=== PATIENT | female | born 1985 | race Caucasian/White ===

== ENCOUNTER 2018-07-30 01:37 | Inpatient (IN) | payer BC ==
[2018-07-30] MEDS ORDERED: CARBOPROST TROMETHAMINE 250 MCG/ML 1 ML AMP IM PRN (02:36)
[2018-07-30] MEDS ORDERED: OXYTOCIN 10 UNIT/ML 1 ML VIAL IM PRN (02:36)
[2018-07-30] MEDS ORDERED: TERBUTALINE 1 MG/ML VIAL SQ PRN (02:36)
[2018-07-30] MEDS ORDERED: METHYLERGONOVINE 0.2 MG/ML 1 ML AMP IM PRN (02:36)
[2018-07-30] MEDS ORDERED: LIDOCAINE 0.5% (PF) 5 MG/ML (50 ML SDV) SQ PRN (02:36)
[2018-07-30] MEDS: LACTATED RINGERS 1,000 ML IV SCH ×2 (02:39→07:15)
[2018-07-30] MEDS ORDERED: LACTATED RINGERS 1,000 ML IV SCH (02:45)
[2018-07-30 02:49] LABS: Basophils % (A) 0 %; Eosinophils # (A) 0.2 k/uL (0-0.7); Eosinophils % (A) 1 %; HCT 40.1 % (34.0-46.0); HGB 13.2 gm/dL (11.4-16.0); Lymphocytes # (A) 1.8 k/uL (1.0-4.8); Lymphocytes % (A) 8 %; MCHC 32.9 g/dL (31.0-37.0); Mean Platelet Volume 8.3; Monocytes # (A) 0.7 k/uL (0-1.0); Monocytes % (A) 3 %; Neutrophils # (A) 18.8 k/uL (1.3-7.7); Neutrophils % (A) 87 %; Platelet Count 289 k/uL (150-450); RDW 14.4 % (11.5-15.5); WBC 21.6 k/uL (3.8-10.6)
[2018-07-30 03:42] VITALS: BMI 27.4
[2018-07-30] MEDS ORDERED: ROPIVACAINE 100 MG, fentaNYL (PF) 200 MCG in SODIUM CHLORIDE 0.9% 76 ML EPIDURAL ONE (06:33)
[2018-07-30] MEDS ORDERED: CITRIC ACID-SODIUM CITRATE 15 ML CUP PO ONE (09:39)
[2018-07-30] MEDS ORDERED: LACTATED RINGERS 1,000 ML IV ONE (09:39)
[2018-07-30] MEDS ORDERED: ceFAZolin IN SWFI 2 GM/20 ML SYRINGE IVP ONE (09:39)
--- NOTE | 2018-07-30 09:45 | P.HPOB ---
History of Present Illness H&P Date: 07/30/18 Chief Complaint: 39-5/7 weeks, labor The patient is a 32-year-old 1 para 0 admitted at 39-5/7 weeks as established by good dating parameters, 6 week ultrasound. She is admitted in the early labor with all signs reassuring. Her has been accomplished negative the she is Rh- and received RhoGAM at 28 weeks. Group B strep status is negative. Obstetrical history: 1 para 0 current statistics listed in history of present illness. EDC of 08/01/2018 was established by a 6 week ultrasound. Laboratory workup demonstrates a blood type of A- with a negative antibody screen. Rubella status is immune. All other laboratory workups within normal limits. One hour Glucola was normal and group B strep status is negative. Gynecologic history: Unremarkable with no history of any infections to include STDs. Review of Systems Review of systems is confined to history of present illness. Past Medical History Past Medical History: Syncope History of Any Multi-Drug Resistant Organisms: None Reported Past Surgical History: No Surgical Hx Reported Past Anesthesia/Blood Transfusion Reactions: No Reported Reaction Past Psychological History: No Psychological Hx Reported Smoking Status: Never smoker Past Alcohol Use History: None Reported Past Drug Use History: None Reported - Past Family History Sister(s) Family Medical History: Blood Disorder, Cancer Medications and Allergies Home Medications Medication Instructions Recorded Confirmed Type Pnv,Calcium 72/Iron/Folic Acid 1 each PO DAILY 07/30/18 07/30/18 History [ Plus Tablet] Allergies Allergy/AdvReac Type Severity Reaction Status Date / Time No Known Allergies Allergy Verified 07/30/18 02:35 Exam Vital Signs Temp Pulse Resp BP Pulse Ox 07/30/18 02:36 98.0 F 79 20 114/66 99 07/30/18 02:30 98.0 F 79 20 114/66 99 Intake and Output 07/29/18 07/30/18 07/30/18 22:59 06:59 14:59 Output Total 300 Balance -300 Output: Urine 300 Other: Weight 68.039 kg In general, this is a well-developed, well-nourished white female in no acute distress heart has a regular rhythm and rate without murmur. Her lungs are clear to auscultation bilaterally in all segura. Her abdomen is gravid, nondistended, has normal active bowel sounds, is soft, nontender, without any palpable masses aside from uterine fundus. Her extremities are without any cyanosis, clubbing, or edema and are nontender to palpation bilaterally. Digital cervical examination demonstrates her cervix to be 870 additionally, 90% effaced, the vertex in presentation at -1 station. Artificial rupture of membranes is carried out demonstrating clear fluid. Results Result Diagrams: 07/30/18 02:31 Abnormal Lab Results - Last 24 Hours (Table) 07/30/18 Range/Units 02:31 WBC 21.6 H (3.8-10.6) k/uL Neutrophils # 18.8 H (1.3-7.7) k/uL Assessment and Plan (1) Active labor at term Current Visit: Yes Status: Acute Code(s): BTL5621 - SNOMED Code(s): 73911311 Plan: The patient is admitted for close maternal and surveillance and she will have expectant management. An epidural catheter has been placed for analgesia. We will anticipate normal spontaneous vaginal delivery in the near future.
[2018-07-30] MEDS ORDERED: ACETAMINOPHEN IV (For NPO) 1,000 MG in EMPTY BAG 1 BAG IVPB STA (10:35)
[2018-07-30] MEDS ORDERED: ONDANSETRON 4 MG/2 ML VIAL IVP PRN (10:37)
[2018-07-30] MEDS ORDERED: NALOXONE 0.4 MG/ML 1 ML VIAL IV PRN (10:37)
[2018-07-30] MEDS ORDERED: diphenhydrAMINE 50 MG CAP PO PRN (10:37)
[2018-07-30] MEDS ORDERED: ZOLPIDEM 5 MG TAB PO PRN (10:37)
[2018-07-30] MEDS ORDERED: METOCLOPRAMIDE 5 MG/ML 2 ML VIAL IVP PRN (10:37)
[2018-07-30] MEDS ORDERED: diphenhydrAMINE 25 MG CAP PO PRN (10:37)
[2018-07-30] MEDS ORDERED: HYDROcodone/APAP 5-325MG 1 EACH TAB PO PRN (10:37)
[2018-07-30] MEDS ORDERED: diphenhydrAMINE 50 MG/ML 1 ML VIAL IVP PRN ×2 (10:37)
--- NOTE | 2018-07-30 10:47 | P.OP ---
Date of Procedure: 07/30/18 Preoperative Diagnosis: #1. 39-5/7 weeks, labor #2. Arrest of descent #3. Suspected malposition Postoperative Diagnosis: Same plus #4. Left occiput posterior position Procedure(s) Performed: #1. Primary low transverse section Anesthesia: MEGHNA Surgeon: Colton Quiroz Link Knitting Machine Operator #1: Hiwot Crane Estimated Blood Loss (ml): 600 IV fluids (ml): 1,000 Urine output (ml): 100 Pathology: other Condition: stable Disposition: PACU Operative Findings: The patient progressed to complete fairly quickly and began to push effectively. She continued to have a very thin anterior lip and head descent was no lower than 0 to -1 station at which time she was thought to have a relatively contracted pelvis with a narrow pubic arch and very prominent posterior initial spines. Additionally, the infant was thought to be in occiput posterior position. As result she was taken the operating room where she underwent primary low-transverse section was delivered of a viable 7 pound, 3 ounces baby boy with Apgars of 9 and 9 at 1 and 5 minutes respectively.. The placenta was delivered manually, intact, and grossly normal with a grossly normal three-vessel cord. The uterus, tubes, and ovaries were entirely normal to inspection. Description of Procedure: Patient was prepped and draped in usual fashion after general endotracheal anesthesia was administered by the anesthesiologist as epidural anesthesia did not produce adequate analgesia. A Pfannenstiel incision was made into the abdominal cavity without difficulty. The bladder peritoneum was elevated, inc ised and reflected distally. A 2 cm incision was made in the lower uterine segment and the transverse plane to enter the uterus at which time clear fluid was noted. The incision was extended bluntly in both directions. The head was found deep in the pelvis in the left occiput posterior position and was delivered up and through the incision where the nose and mouth were thoroughly suctioned. The remainder of the was delivered onto the field where the cord was doubly clamped, cut, and the passed resuscitative measures with weight and Apgars as noted above. A segment of cord was doubly clamped, cut, and set aside should cord gases become necessary. The placenta was delivered manually and intact as noted above. Uterus was exteriorized and the interior cavity of uterus swept of any remaining placental or membranous fragments. The margins of the incision were grasped with [place] clamps and the incision closed in 2 layers. The first layer was a running locking stitch of 0 chromic catgut followed by a running imbricating layer of 0 chromic catgut, each from margin to margin. There was some ongoing bleeding at the right aspect of the incision which was made hemostatic with several [id number] stitches of 0 chromic catgut. After assuring adequate hemostasis, the uterus was replaced within the abdominal cavity after suctioning the posterior cul-de-sac with a guard. The uterine and ovarian findings were normal as noted above. The gutters were swept of any remaining blood, fluid, or clot. Any small points of bleeding were made hemostatic with the Bovie. Once hemostasis was assured, the parietal peritoneum was loosely reapproximated and layer of muscles examined and found to be hemostatic. The fascia was closed with 2 running stitches of 0 Vicryl proceeding from the lateral margins to the midpoint. The subcutaneous tissues were irrigated, made hemostatic with the Bovie, and not close primarily as they were very thin. The skin was reapproximate with a running subcuticular stitch of 4-0 Vicryl followed by half-inch Steri-Strips placed with Mastisol. All sponge, instrument, needle counts were correct. Estimated blood loss for the case is approximately 600 mL. There were no complications. The patient tolerated procedure well and proceeded to the recovery room in stable condition. Both mother and are resting comfortably in recovery.
[2018-07-31] MEDS: SENNOSIDES-DOCUSATE SODIUM 1 EACH TAB PO SCH ×3 (07:48→19:28)
[2018-07-31 07:59] LABS: Basophils % (A) 0 %; Eosinophils # (A) 0.1 k/uL (0-0.7); Eosinophils % (A) 1 %; HCT 31.8 % (34.0-46.0); HGB 10.4 gm/dL (11.4-16.0); Lymphocytes % (A) 14 %; MCH 30.6 pg (25.0-35.0); MCHC 32.6 g/dL (31.0-37.0); MCV 93.6 fL (80.0-100.0); Mean Platelet Volume 7.8; Monocytes # (A) 0.6 k/uL (0-1.0); Monocytes % (A) 4 %; Neutrophils # (A) 12.1 k/uL (1.3-7.7); Neutrophils % (A) 81 %; Platelet Count 238 k/uL (150-450); RDW 13.5 % (11.5-15.5)
--- NOTE | 2018-07-31 08:38 | P.PNOBGPC ---
Subjective - Subjective Patient reports: Reports appetite normal, Reports voiding normally, Reports pain well controlled, Reports ambulating normally : doing well, nursing well Objective - Vital Signs Latest vital signs: Vital Signs Temp Pulse Resp BP Pulse Ox 07/31/18 04:00 98.3 F 70 14 98/63 07/31/18 00:00 98.0 F 78 16 118/65 07/30/18 20:00 97.9 F 72 16 103/63 07/30/18 15:31 96.6 F L 63 18 111/65 98 07/30/18 12:57 96.6 F L 15 111/62 97 07/30/18 12:30 69 18 109/68 100 07/30/18 12:05 60 18 114/70 100 07/30/18 11:45 60 18 116/70 100 07/30/18 11:15 73 18 100 07/30/18 10:55 96.9 F L 90 20 134/78 100 Intake and Output 07/30/18 07/31/18 07/31/18 22:59 06:59 14:59 Intake Total 300 300 Output Total 600 Balance -300 300 Intake: Oral 300 300 Output: Urine 600 - Exam Extremities: Present: normal Abdomen: Present: normal appearance, soft. Absent: distention, tenderness Incision: Present: normal, dry, intact Uterus: Present: normal, firm (The uterine fundus is tonic and nontender at the umbilicus.) - Labs Labs: Abnormal Lab Results - Last 24 Hours (Table) 07/31/18 Range/Units 06:39 WBC 15.0 H (3.8-10.6) k/uL RBC 3.40 L (3.80-5.40) m/uL Hgb 10.4 L (11.4-16.0) gm/dL Hct 31.8 L (34.0-46.0) % Neutrophils # 12.1 H (1.3-7.7) k/uL Assessment and Plan (1) Active labor at term Current Visit: Yes Status: Acute Code(s): ZBC2361 - SNOMED Code(s): 65663676 (2) S/P section Current Visit: Yes Status: Acute Code(s): Z98.891 - HISTORY OF UTERINE SCAR FROM PREVIOUS SURGERY SNOMED Code(s): 477045345 Plan: Continue routine postoperative care. Advance diet to regular. I have strongly encouraged her to ambulate in the hallways at least 4 times daily. The IV fluids will be stopped and the IV left in place for several hours should it become necessary. Oral pain medications are available.
[2018-07-31] MEDS: KETOROLAC 30 MG/ML 1 ML VIAL IVP PRN ×2 (09:29→17:03)
[2018-07-31] MEDS: LACTATED RINGERS 1,000 ML IV SCH ×3 (11:04→20:07)
[2018-07-31] MEDS: HYDROcodone/APAP 7.5-325MG 1 EACH TAB PO PRN ×2 (14:05→22:39)
[2018-08-01] MEDS: IBUPROFEN 600 MG TAB PO PRN ×2 (02:00→08:31)
[2018-08-01] MEDS: HYDROcodone/APAP 7.5-325MG 1 EACH TAB PO PRN (04:33)
[2018-08-01 08:02] VITALS: BP 106/85; PULSE 64; RESP 18; TEMP 97.6
[2018-08-01] MEDS: SENNOSIDES-DOCUSATE SODIUM 1 EACH TAB PO SCH (08:32)
--- NOTE | 2018-08-01 08:46 | P.DS ---
Providers Date of admission: 07/30/18 02:06 Expected date of discharge: 08/01/18 Attending physician: Colton Quiroz Primary care physician: Colton Quiroz - Discharge Diagnosis(es) (1) Active labor at term Current Visit: Yes Status: Acute (2) S/P section Current Visit: Yes Status: Acute Hospital Course: The patient is a 32-year-old 1 para 0 admitted at 39-5/7 weeks by good dating parameters. She is admitted in labor with all signs reassuring. She is known to be Rh- and received RhoGAM at 28 weeks. Group B strep status is negative. On labor and delivery, she had an epidural catheter placed for analgesia which failed to provide any significant level of the pain control. She nevertheless progressed very quickly to complete after artificial rupture of membranes for clear fluid. After pushing for some time, she was noted to have no significant descent of the head despite excellent effort and the position was thought to be occiput posterior. She was taken to the operating room for primary low transverse section where she was delivered of a viable 7 lbs. 3 oz. baby boy with Apgars of 9 at 1 minute and 9 at 5 minutes in the left occiput posterior position. Her postoperative course was unremarkable vital signs remain stable and her temperature was afebrile throughout. She was deemed stable for discharge on and postoperative day #2. She was discharged home to follow-up in the office in 2 weeks for an incision check and 6 weeks routinely. Discharge instructions included calling for any significantly increased bleeding or foul-smelling lochia, significantly increased fever or abdominal pain, perineal complaints, breast complaints, incisional complaints, or anything else that concerned her. She was additionally instructed to have nothing in the vagina for at least 6 weeks time to include intercourse and to abstain from any heavy lifting over the same period of time. She was last instructed to do no driving until off of all pain medications or 2 weeks' time, whichever came first. She understood her instructions and agrees to follow up as noted above. Discharge medications included a prescription for [place] 5/325 mg, 1-2 by mouth every 6 hours when necessary pain, #20 dispensed with no refills. She is additionally to use [id number]-fqmhjea analgesic pain medications as necessary. She was additionally to continue with the vitamins as she has opted to breast-feed. Maternal blood type is A- and cord blood was sent for evaluation for the necessity of RhoGAM prior to discharge. Rubella status is immune. Discharge hemoglobin and hematocrit were 10.4 and 31.8 respectively. Procedures: #1. Epidural analgesia #2. Artificial rupture of membranes #3. Primary low transverse section Patient Condition at Discharge: Stable Plan - Discharge Summary New Discharge Prescriptions: No Action Pnv,Calcium 72/Iron/Folic Acid [ Plus Tablet] 1 each PO DAILY Discharge Medication List Pnv,Calcium 72/Iron/Folic Acid [ Plus Tablet] 1 each PO DAILY 07/30/18 [History] Follow up Appointment(s)/Referral(s): Colton Quiroz MD [Primary Care Provider] - 2 Weeks Discharge Disposition: HOME SELF-CARE
== END 2018-08-01 11:01 | disposition home or self-care (01) | DRG 788 ==
LOC: FBPOP 01:37 → 4FBP 02:06
PROVIDERS: ADMIT Obstetrics & Gynecology Obstetrics; ATTEND Obstetrics & Gynecology
PROC: 10D00Z1 Extraction of Products of Conception, Low, Open Approach (ICD-10-PCS; principal; 2018-07-30 09:57)
DX: O26.893 Other specified pregnancy related conditions, third trimester (principal); O62.1 Secondary uterine inertia; Z67.91 Unspecified blood type, Rh negative; Z37.0 Single live birth; Z3A.39 39 weeks gestation of pregnancy; Z80.9 Family history of malignant neoplasm, unspecified; Z83.2 Family history of diseases of the blood and blood-forming organs and certain disorders involving the immune mechanism
CPT/HCPCS: 85025; 86850; 86900; 86901

== ENCOUNTER → 2018-11-19 | Outpatient (CLI) | payer BC ==
--- NOTE | 2018-11-19 10:39 | MM ---
Reason for exam: screening (asymptomatic). Baseline mammogram. History: Patient had first child at age 32. Family history of breast cancer in sister at age 43 and breast cancer in maternal aunt at age 40. Took hormonal contraceptives beginning at age 16. Physical Findings: Nurse did not find any significant physical abnormalities on exam. MG 3D Screening Mammo W/Cad Bilateral CC, MLO, and XCCL view(s) were taken. The breast tissue is extremely dense which could obscure a lesion on mammography. There is no discrete abnormality. These results were verbally communicated with the patient and result sheet given to the patient on 11/19/18. ASSESSMENT: Negative, BI-RAD 1 RECOMMENDATION: Routine screening mammogram of both breasts at age 38.
== END ==
LOC: RADMAMWWP 09:27
PROVIDERS: ATTEND Obstetrics & Gynecology
DX: Z12.31 Encounter for screening mammogram for malignant neoplasm of breast (principal); Z80.3 Family history of malignant neoplasm of breast
CPT/HCPCS: 77063; 77067

== ENCOUNTER 2019-10-07 20:00 | Inpatient (IN) | payer BC ==
[2019-10-07 20:31] LABS: Appearance,Urine Clear (Clear); Bilirubin,Urine Negative (Negative); Blood,Urine Moderate (Negative); Color,Urine Light Yellow; Glucose,Urine (UA) Negative (Negative); Ketones,Urine Negative (Negative); Leukocyte Esterase,Urine Negative (Negative); Nitrite,Urine Negative (Negative); PH, Urine 6.5 (5.0-8.0); Protein,Urine Negative (Negative); RBC,Urine 2 /hpf (0-5); Specific Gravity,Urine 1.012 (1.001-1.035); Squamous Epithelial Cell,Urine <1 /hpf (0-4); Urobilinogen,Urine <2.0 mg/dL (<2.0); WBC,Urine 1 /hpf (0-5)
--- NOTE | 2019-10-07 21:08 | P.HPOB ---
History of Present Illness H&P Date: 10/07/19 Chief Complaint: IUP @ 23 6/7 weeks, vaginal bleeding This is a 34-year-old 2 para 1001 at 23-6/7 weeks with an estimated due date of 01/28/2020 based on last menstrual period and consistent with ultrasound. Patient presents with complaints of vaginal bleeding that she felt increased over the day. Patient did note some brown discharge over the weekend and denied contractions. Patient has been receiving routine care since the first trimester. Patient has a history of a and did plan repeat at 39 weeks. In addition on ultrasound patient had known single umbilical artery, anatomy ultrasound done on revealing a weight of 10 ounces measuring 19 weeks. Patient's blood type of A-, rubella immune, RPR nonreactive, hepatitis B surface antigen negative, HIV negative. Review of Systems Constitutional: Denies chills, Denies fatigue, Denies fever Ears, nose, mouth and throat: Denies headache Cardiovascular: Denies leg edema Respiratory: Denies dyspnea Gastrointestinal: Denies nausea, Denies vomiting Genitourinary: Reports Past Medical History Past Medical History: Syncope History of Any Multi-Drug Resistant Organisms: None Reported Past Surgical History: No Surgical Hx Reported Past Anesthesia/Blood Transfusion Reactions: No Reported Reaction Smoking Status: Never smoker - Past Family History Sister(s) Family Medical History: Blood Disorder, Cancer Medications and Allergies Home Medications Medication Instructions Recorded Confirmed Type Pnv,Calcium 72/Iron/Folic Acid 1 each PO DAILY 07/30/18 10/07/19 History [ Plus Tablet] Allergies Allergy/AdvReac Type Severity Reaction Status Date / Time No Known Allergies Allergy Verified 10/07/19 20:09 Exam Osteopathic Statement: *. No significant issues noted on an osteopathic structural exam other than those noted in the History and Physical/Consult. 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-nourished well-developed visibly tearful, upset patient breathing is noted to nonlabored, heart has regular rate and rhythm, abdomen is gravid and appropriate for gestational age, no heart tones are noted on ultrasound Results Abnormal Lab Results - Last 24 Hours (Table) 10/07/19 Range/Units 20:00 Urine Blood Moderate H (Negative) Assessment and Plan (1) 23 weeks gestation of Current Visit: Yes Status: Acute Code(s): Z3A.23 - 23 WEEKS GESTATION OF SNOMED Code(s): 08371564 (2) demise Current Visit: Yes Status: Acute Code(s): SZO7692 - SNOMED Code(s): 984259492 Plan: This 34 year old 2 para 1001 at 23-6/7 weeks presented to labor and delivery with complaints of bright red bleeding, he should underwent ultrasound well on the unit, no heart tones were noted, IUP measuring 18 weeks 3 days, weight of 10 ounces. records are reviewed prior ultrasound done on 09/11/19 revealing 19 week intrauterine , weight of 10 ounces. I did discuss options with the patient and her including starting induction of labor secondary to demise this evening or tomorrow morning. Patient does have a history of a in the past but given her early gestational age would recommend Cervidil/Cytotec induction. Patient is counseled on pain control in addition throughout this process.
[2019-10-07] MEDS ORDERED: LIDOCAINE 0.5% (PF) 5 MG/ML (50 ML SDV) SQ PRN (21:13)
[2019-10-07] MEDS ORDERED: METHYLERGONOVINE 0.2 MG/ML 1 ML AMP IM PRN (21:13)
[2019-10-07] MEDS ORDERED: TERBUTALINE 1 MG/ML VIAL SQ PRN (21:13)
[2019-10-07] MEDS ORDERED: CARBOPROST TROMETHAMINE 250 MCG/ML 1 ML AMP IM PRN (21:13)
--- NOTE | 2019-10-07 21:13 | US ---
EXAMINATION TYPE: US OB >= 14 wk fetus DATE OF EXAM: 10/07/2019 COMPARISON: None CLINICAL HISTORY: Bleeding. Complete Growth study. G 2 P1. Hx . TECHNIQUE: Transabdominal (TA) GESTATIONAL AGE / DATING Physician Established: (23 weeks/6 days) EDC: 01/28/2020 Dates by LMP: Unknown Dates by First Scan: This is first scan Dates by Current Scan: (18 weeks/3 days) EDC: 03/06/2020 SURVEY IUP: Single PLACENTA: Posterior-Fundal. Appears to be heterogeneous. PREVIA: Not seen DANA: 12.59 cm Normal CERVICAL LENGTH (transabdominal: norm > 3.0cm): Not well seen. Transvaginal exam not performed, unnecessary per nurse. BIOMETRY PRESENTATION: Vertex BPD: 3.86 cm 17 weeks / 5 days HC: 14.70 cm 17 weeks / 6 days AC: 15.30 cm 20 weeks / 4 days FL: 2.74 cm 18 weeks / 3 days ESTIMATED WEIGHT IN GRAMS: 284.32 grams ESTIMATED WEIGHT IN LBS/OZ: 0 lbs. 10 oz. WEIGHT PERCENTAGE BASED ON ESTABLISHED DATES: <3% HC/AC: 0.96 Abnormal FL/AC: 17.93 HEART RATE: Unable to visualize or detect heart tones at this time RHYTHM: Abnormal, unable to detect Hypoechoic areas seen surrounding abdomen. IMPRESSION: There is intrauterine demise at approximately 18 weeks gestation.
[2019-10-07] MEDS ORDERED: miSOPROStoL 200 MCG TAB PO STA (21:17)
[2019-10-07] MEDS ORDERED: BUTORPHANOL 1 MG/ML 1 ML VIAL IV PRN (21:18)
[2019-10-07] MEDS: LACTATED RINGERS 1,000 ML IV SCH (21:45)
[2019-10-07 21:49] VITALS: RESP 16
[2019-10-07 22:33] LABS: Basophils % (A) 0 %; Eosinophils # (A) 0.1 k/uL (0-0.7); Eosinophils % (A) 2 %; HCT 38.7 % (34.0-46.0); HGB 12.6 gm/dL (11.4-16.0); Lymphocytes # (A) 1.7 k/uL (1.0-4.8); Lymphocytes % (A) 22 %; MCH 30.1 pg (25.0-35.0); MCHC 32.6 g/dL (31.0-37.0); MCV 92.3 fL (80.0-100.0); Mean Platelet Volume 7.6; Monocytes # (A) 0.3 k/uL (0-1.0); Monocytes % (A) 4 %; Neutrophils # (A) 5.5 k/uL (1.3-7.7); Neutrophils % (A) 71 %; Platelet Count 186 k/uL (150-450); RBC 4.19 m/uL (3.80-5.40); RDW 13.2 % (11.5-15.5); WBC 7.8 k/uL (3.8-10.6)
[2019-10-08] MEDS ORDERED: miSOPROStoL 200 MCG TAB PO STA (04:02)
[2019-10-08] MEDS: LACTATED RINGERS 1,000 ML IV SCH (04:22)
[2019-10-08] MEDS ORDERED: BENZOCAINE/MENTHOL SPRAY 1 GM/SPRAY AEROSOL TOPICAL PRN (07:30)
[2019-10-08] MEDS ORDERED: SIMETHICONE 80 MG CHEWABLE PO PRN (07:30)
[2019-10-08] MEDS ORDERED: diphenhydrAMINE 25 MG CAP PO PRN (07:30)
[2019-10-08] MEDS ORDERED: HYDROCORTISONE 2.5% RECTAL CREAM 30 GM TUBE RECTAL PRN (07:30)
[2019-10-08] MEDS ORDERED: ACETAMINOPHEN TAB 325 MG TAB PO PRN (07:30)
[2019-10-08] MEDS ORDERED: diphenhydrAMINE 50 MG/ML 1 ML VIAL IVP PRN ×2 (07:30)
[2019-10-08] MEDS ORDERED: LANOLIN CREAM 5 GM TUBE TOPICAL PRN (07:30)
[2019-10-08] MEDS ORDERED: IBUPROFEN 600 MG TAB PO PRN (07:30)
[2019-10-08] MEDS ORDERED: ZOLPIDEM 5 MG TAB PO PRN (07:30)
[2019-10-08] MEDS ORDERED: diphenhydrAMINE 50 MG CAP PO PRN (07:30)
--- NOTE | 2019-10-08 08:06 | P.PROBDLV ---
Vaginal Delivery Note - . Vaginal Delivery Note: This 34-year-old 2 para 1001 at 23-6/7 weeks presented to labor and delivery yesterday with complaints of vaginal bleeding. Complete ultrasound was a preformed and no heart tones were noted. Patient was subsequently admitted to labor and delivery and Cytotec induction of labor was preformed secondary to demise. Patient progressed quickly through labor started feeling vaginal pressure and had a normal spontaneous vaginal delivery of an interuterine demise. The umbilical cord was doubly clamped and cut and the infant was handed off to the maternal abdomen. After a short while the placenta was delivered spontaneously intact. Minimal bleeding was noted throughout the delivery. No vaginal lacerations were noted. Patient tolerated delivery well. All counts are noted to be correct 2 at the end of surgery.
[2019-10-08 08:12] VITALS: TEMP 98.8
[2019-10-08] MEDS ORDERED: Rhogam IMMUNE GLOBULIN 1,500 UNIT/1 ML IM ONE ×2 (09:15→10:38)
[2019-10-08 09:38] VITALS: PULSE 71
[2019-10-08 10:50] VITALS: BP 102/52
== END 2019-10-08 13:20 | disposition home or self-care (01) | DRG 807 ==
LOC: FBPOP 20:00 → 4FBP 21:20
PROVIDERS: ADMIT Obstetrics & Gynecology Obstetrics; ATTEND Obstetrics & Gynecology
PROC: 3E0P7VZ Introduction of Hormone into Female Reproductive, Via Natural or Artificial Opening (ICD-10-PCS; principal; 2019-10-08)
PROC: 10E0XZZ Delivery of Products of Conception, External Approach (ICD-10-PCS; principal; 2019-10-08)
DX: O36.4XX0 Maternal care for intrauterine death, not applicable or unspecified (principal); Z37.1 Single stillbirth; O34.219 Maternal care for unspecified type scar from previous cesarean delivery; Z3A.23 23 weeks gestation of pregnancy; O46.8X2 Other antepartum hemorrhage, second trimester
CPT/HCPCS: 76805; 81001; 85025; 86850; 86900; 86901; 99213

== ENCOUNTER 2020-11-03 10:05 | Outpatient (CLI) | payer BC ==
[2020-11-03 12:37] VITALS: BP 114/75; PULSE 65; RESP 16; TEMP 97.4
--- NOTE | 2020-11-06 12:29 | P.MSEPDOC ---
Presenting Problems - Arrival Data Date of Arrival on Unit: 11/03/20 Time of Arrival on Unit: 10:05 Mode of Transport: Ambulatory - Complaint OB-Reason for Admission/Chief Complaint: Headache, Other Comment: nausea and irregular contx Medical History - Information : 3 Para: 1 Term: 1 : 0 Abortions: Spontaneous or Elective: 1 Number of Living Children: 1 - Gestational Age Gestational Age by FER (wks/days): 37 Weeks and 5 Days Review of Systems - Review of Systems Constitutional: No problems Breast: No problems ENT: No problems Cardiovascular: No problems Respiratory: No problems Gastrointestinal: No problems Genitourinary: No problems Musculoskeletal: No problems Neurological: No problems Skin: No problems Vital Signs - Temperature Temperature: 97.4 F Temperature Source: Temporal Artery Scan - Pulse Apical Pulse Rate: 65 Pulse Assessment Method: Automatic Cuff - Respirations Respiratory Rate: 16 Oxygen Delivery Method: Room Air O2 Sat by Pulse Oximetry: 99 - Blood Pressure Right Arm Blood Pressure: 114/75 Blood Pressure Mean: 88 Blood Pressure Source: Automatic Cuff Medical Screen Scoring - Cervical Exam Dilation (cm): 1 Effacement (%): 50 Membranes: Intact - Uterine Contractions Intensity: Mild - Assessment - Baby A Baseline FHR: 135 Heart Rate - NICHD Category: Category I (Normal) NST: Reactive Physician Notification - Physician Notified Physician Notified Date: 11/03/20 Physician Notified Time: 11:20 Physician: Colton Quiroz Order Received: Yes - Notification Comment Comment: discharge home with instructions . keep appt for tomorrow Maternal Triage Index - Non-Urgent/Priority 4 Non-Urgent Priority 4: Yes Criteria Met for Priority 4: headache since yesterday. nausea today. no history of pih. hx of migrane headaches prenatally in early weeks Disposition - Disposition OB Disposition: Discharge to home, Written follow up instructions reviewed Discharge Date: 11/03/20 Discharge Time: 11:30 I agree with the RN Medical Screening Exam: Yes Physician's MSE Comment: I have neither seen nor examined the patient. Case reviewed; plan agreed upon as documented in EMR&OBIX.: Yes Diagnosis: RELATED CONDITIONS, UNSPECIFIED, THIRD TRIMESTER
== END 2020-11-03 11:30 | disposition home or self-care (01) ==
LOC: FBPOP 10:05
PROVIDERS: ATTEND Obstetrics & Gynecology
DX: O26.893 Other specified pregnancy related conditions, third trimester (principal); R51.9 Headache, unspecified; Z3A.37 37 weeks gestation of pregnancy
CPT/HCPCS: 59025; 99213

== ENCOUNTER 2020-11-12 08:05 | Inpatient (IN) | payer BC ==
[2020-11-09 15:30] VITALS: BMI 27.1
[2020-11-12] MEDS ORDERED: CITRIC ACID-SODIUM CITRATE 15 ML CUP PO ONE (08:38)
[2020-11-12 08:51] LABS: Basophils % (A) 0 %; Eosinophils # (A) 0.2 k/uL (0-0.7); Eosinophils % (A) 1 %; HCT 40.6 % (34.0-46.0); HGB 13.2 gm/dL (11.4-16.0); Lymphocytes # (A) 2.2 k/uL (1.0-4.8); Lymphocytes % (A) 16 %; MCH 31.2 pg (25.0-35.0); MCHC 32.6 g/dL (31.0-37.0); MCV 95.7 fL (80.0-100.0); Mean Platelet Volume 8.6; Monocytes # (A) 0.5 k/uL (0-1.0); Monocytes % (A) 4 %; Neutrophils # (A) 10.6 k/uL (1.3-7.7); Neutrophils % (A) 78 %; Platelet Count 206 k/uL (150-450); RBC 4.24 m/uL (3.80-5.40); RDW 13.3 % (11.5-15.5); WBC 13.7 k/uL (3.8-10.6)
[2020-11-12] MEDS ORDERED: PHENYLEPHRINE-0.9% NACL SYG 1,000 MCG/10 ML SYRINGE ONE (10:03)
[2020-11-12] MEDS ORDERED: KETOROLAC 15 MG/ML 1 ML VIAL ONE (10:03)
[2020-11-12] MEDS ORDERED: MORPHINE SULFATE (PF) 0.3 MG/0.3 ML SYR ONE (10:03)
[2020-11-12] MEDS ORDERED: NALBUPHINE 10 MG/ML (1 ML AMP) ONE (10:03)
[2020-11-12] MEDS ORDERED: ONDANSETRON 4 MG/2 ML VIAL ONE (10:03)
--- NOTE | 2020-11-12 10:12 | P.HPOB ---
History of Present Illness H&P Date: 11/12/20 Chief Complaint: 39-0/7 weeks, previous section, requesting repeat The patient is a 35-year-old 3 para 02/20/2000 admitted at 39-0/7 weeks by good dating parameters for repeat low transverse section. She has a history of a previous section and requested repeat. She also has history of a 23 week intrauterine demise for which she underwent maternal medicine consultation and had testing which was reassuring twice weekly after 32 weeks. She is also Rh- and received RhoGAM at 28 weeks. On labor and delivery, all signs reassuring with a category 1 heart rate tracing. Group B strep status is negative. Obstetrical history: 3 para 02/20/2000 with 1 term section and one 23 week loss which was thought to be secondary to syndrome of recurrence. Current statistics are listed in history present illness. EDC of 11/19/2020 was established by last menstrual period and confirmed by 9 week ultrasound. Laboratory workup demonstrates a blood type of A- with a negative antibody screen. Rubella status is immune. The remainder of the laboratory workup was within normal limits. One hour Glucola was normal and group B strep status is negative. Gynecologic history: Unremarkable with no history of any infections to include STDs. Review of Systems Review of systems is confined to history of present illness. Past Medical History Past Medical History: GERD/Reflux, Syncope History of Any Multi-Drug Resistant Organisms: None Reported Past Surgical History: Section Additional Past Surgical History / Comment(s): Section X1. Past Anesthesia/Blood Transfusion Reactions: No Reported Reaction Past Psychological History: No Psychological Hx Reported Smoking Status: Never smoker Past Alcohol Use History: None Reported Past Drug Use History: None Reported - Past Family History Sister(s) Family Medical History: Blood Disorder, Cancer Additional Family Medical History / Comment(s): Breast Cancer. Can't remember full name of blood disorder (IPT?). Medications and Allergies Home Medications Medication Instructions Recorded Confirmed Type Pnv,Calcium 72/Iron/Folic Acid 1 each PO 1300 07/30/18 11/09/20 History [ Plus Tablet] Aspirin 81 mg PO HS 11/03/20 11/09/20 History Ferrous Sulfate [Feosol] 325 mg PO BID 11/09/20 11/09/20 History Omeprazole [PriLOSEC] 20 mg PO Q48H 11/09/20 11/09/20 History Allergies Allergy/AdvReac Type Severity Reaction Status Date / Time No Known Allergies Allergy Verified 11/09/20 15:21 Exam Vital Signs Temp Pulse Resp BP 11/12/20 08:37 97.7 F 78 16 124/81 Intake and Output 11/11/20 11/12/20 11/12/20 22:59 06:59 14:59 Other: Weight 67.132 kg In general, this is a well-developed, well-nourished white female in no acute distress. Her heart has a regular rhythm and rate without murmur. Her lungs are clear to sedation bilaterally in all segura. Her abdomen is gravid, nondistended, has normal active bowel sounds, is soft, nontender, and without any palpable masses aside from uterine fundus. Her extremities without any cyanosis, clubbing, or significant edema and are nontender to palpation bilaterally. Digital cervical examination is deferred. Results Result Diagrams: 11/12/20 08:30 Abnormal Lab Results - Last 24 Hours (Table) 11/12/20 Range/Units 08:30 WBC 13.7 H (3.8-10.6) k/uL Neutrophils # 10.6 H (1.3-7.7) k/uL Assessment and Plan (1) Term Current Visit: Yes Status: Acute Code(s): Z34.90 - ENCNTR FOR SUPRVSN OF NORMAL , UNSP, UNSP TRIMESTER SNOMED Code(s): 62704544 (2) Previous section Current Visit: Yes Status: Acute Code(s): Z98.891 - HISTORY OF UTERINE SCAR FROM PREVIOUS SURGERY SNOMED Code(s): 791091906 Plan: The patient is admitted for repeat low transverse section. The risks and complications have been discussed and she has understood and agreed to proceed.
[2020-11-12] MEDS ORDERED: METOCLOPRAMIDE 5 MG/ML 2 ML VIAL IVP PRN (11:02)
[2020-11-12] MEDS ORDERED: ZOLPIDEM 5 MG TAB PO PRN (11:02)
[2020-11-12] MEDS ORDERED: diphenhydrAMINE 25 MG CAP PO PRN (11:02)
[2020-11-12] MEDS ORDERED: SIMETHICONE 80 MG CHEWABLE PO PRN (11:02)
[2020-11-12] MEDS ORDERED: NALOXONE 0.4 MG/ML 1 ML VIAL IV PRN (11:02)
[2020-11-12] MEDS ORDERED: HYDROmorphone 2 MG TAB PO PRN ×2 (11:02)
[2020-11-12] MEDS ORDERED: diphenhydrAMINE 50 MG/ML 1 ML VIAL IVP PRN ×2 (11:02)
[2020-11-12] MEDS ORDERED: ONDANSETRON 4 MG/2 ML VIAL IVP PRN (11:02)
[2020-11-12] MEDS ORDERED: diphenhydrAMINE 50 MG CAP PO PRN (11:02)
[2020-11-12] MEDS ORDERED: LANOLIN CREAM 5 GM TUBE TOPICAL PRN (11:02)
[2020-11-12] MEDS ORDERED: KETOROLAC 15 MG/ML 1 ML VIAL IVP PRN (11:02)
--- NOTE | 2020-11-12 11:11 | P.OP ---
Date of Procedure: 11/12/20 Preoperative Diagnosis: #1. 39-0/7 weeks, previous section, requesting repeat Postoperative Diagnosis: Same Procedure(s) Performed: #1. Repeat low transverse section Anesthesia: spinal Surgeon: Colton Quiroz [employer] Architect #1: Hiwot Crane Estimated Blood Loss (ml): 425 IV fluids (ml): 1,000 Urine output (ml): 400 Pathology: none sent Condition: stable Disposition: floor Operative Findings: The patient was taken the operating room where she was delivered of a viable 7 lbs. 9 oz. baby girl with Apgars of 9 at 1 minute and 9 at 5 minutes delivered in the right occiput transverse position. The placenta was delivered manually, intact, and grossly normal with a grossly normal three-vessel cord. The uterus, tubes, and ovaries were entirely normal to inspection. There was a moderate amount of scarring at the level of the rectus muscles and fascia as well as the bladder being scarred relatively high on the lower uterine segment as well. Urine was clear throughout the case. Description of Procedure: The patient was prepped and draped in usual fashion after spinal anesthesia was initially by the anesthesiologist. A Pfannenstiel incision was made through pre-existing scar and extended into the abdominal cavity without difficulty. There was a moderate amount of scarring encountered at the level of the fascia and rectus muscles. Upon entering the abdomen, the bladder was noted to be scarred relatively high both to the anterior abdominal wall and on the uterus. This was carefully taken down and a bladder flap created to allow the bladder to be reflected distally. A 2 cm incision was made in the transverse plane of the lower uterine segment to enter the uterus at which time clear fluid was noted. Incision was extended in both directions using the bandage scissors. The head was delivered up and through the incision where the nose and mouth were suctioned. The remainder of the was delivered onto the field where the cord was doubly clamped, cut, and the infant passed for resuscitative measures with weight and Apgars as noted above. A segment of cord was doubly clamped, cut, and set aside should cord gases become necessary. The placenta was delivered manually and intact as noted above. The uterus was exteriorized and the interior cavity of the uterus swept of any remaining placental or membranous fragments. The margins of the uterine incision were grasped with [place] clamps and the uterus closed in 2 layers. The first layer was a running locking stitch of 0 chromic catgut followed by a running imbricating stitch of 0 chromic catgut. There was a very large venous bleeder at the left angle of the incision which was made hemostatic with 2 [id number] stitches of 0 chromic catgut during closure of the incision. Any small points of bleeding were made hemostatic with the Bovie. The posterior cul-de-sac was suctioned with a guard and the uterine and ovarian findings were normal as noted above. Uterus was replaced within the abdomen and the gutters swept of any remaining blood, fluid, or clot. Examination of the incision demonstrated some mild oozing in the midportion where a sinus had been encountered. This was made hemostatic with 2 ktkaue-qz-flmyo stitches of 0 chromic catgut. Hemostasis was otherwise excellent. Once hemostasis had been achieved, the parietal peritoneum was loose ly reapproximated in the layer of muscles examined and found to be hemostatic. The fascia was closed with 2 running stitches of 0 Vicryl proceeding from the lateral margins to the midpoint. As the subcutaneous tissues were less than 1 cm in thickness, they were not closed primarily. A were irrigated and made hemostatic with the Bovie.. The skin was reapproximated with a running subcuticular stitch of 4-0 Vicryl from margin to margin followed by half-inch Steri-Strips placed with Mastisol. Estimated blood loss for the case was approximately 425 mL. There were no complications. All sponge, instrument, and needle counts were correct. The patient tolerated the procedure well and proceeded to the recovery room in stable condition. Both mother and are resting comfortably in recovery.
[2020-11-12] MEDS ORDERED: OXYTOCIN 30 UNITS/500 ML NS 30 UNIT in SALINE 1 500ML.BAG IV SCH (11:15)
[2020-11-12] MEDS: ACETAMINOPHEN TAB 500 MG TAB PO SCH ×2 (13:02→20:08)
[2020-11-12] MEDS: IBUPROFEN 600 MG TAB PO SCH ×2 (16:38→23:23)
[2020-11-12] MEDS: SENNOSIDES-DOCUSATE SODIUM 1 EACH TAB PO SCH (20:08)
[2020-11-12] MEDS: LACTATED RINGERS 1,000 ML IV SCH ×2 (20:44→23:25)
[2020-11-12] MEDS ORDERED: Rhogam IMMUNE GLOBULIN 1,500 UNIT/1 ML IM ONE (21:12)
[2020-11-13] MEDS: ACETAMINOPHEN TAB 500 MG TAB PO SCH ×4 (02:11→20:51)
[2020-11-13] MEDS: IBUPROFEN 600 MG TAB PO SCH ×4 (04:59→23:57)
[2020-11-13] MEDS: LACTATED RINGERS 1,000 ML IV SCH ×2 (06:40→21:13)
[2020-11-13 08:31] LABS: Basophils % (A) 0 %; Eosinophils # (A) 0.2 k/uL (0-0.7); Eosinophils % (A) 2 %; HCT 30.4 % (34.0-46.0); Lymphocytes # (A) 1.7 k/uL (1.0-4.8); Lymphocytes % (A) 14 %; MCH 31.9 pg (25.0-35.0); MCHC 32.9 g/dL (31.0-37.0); MCV 97.2 fL (80.0-100.0); Mean Platelet Volume 8.8; Monocytes # (A) 0.7 k/uL (0-1.0); Monocytes % (A) 6 %; Neutrophils # (A) 9.2 k/uL (1.3-7.7); Neutrophils % (A) 78 %; Platelet Count 175 k/uL (150-450); RBC 3.13 m/uL (3.80-5.40); RDW 13.5 % (11.5-15.5); WBC 11.8 k/uL (3.8-10.6)
--- NOTE | 2020-11-13 10:36 | P.PNOBGPC ---
Subjective - Subjective Principal diagnosis: Postop day 1, repeat section Interval history: Patient is doing well this morning. She is ambulatory and voiding without difficulty. Tolerating a regular diet without nausea or vomiting. She denies flatus. Her lochia is minimal. Pain is well-controlled. Patient reports: Reports appetite normal, Reports voiding normally, Reports pain well controlled, Reports ambulating normally : doing well Objective - Vital Signs Latest vital signs: Vital Signs Temp Pulse Resp BP Pulse Ox 11/13/20 08:00 97.9 F 52 L 16 100/63 11/13/20 04:00 98.0 F 53 L 18 92/59 98 11/13/20 00:00 97.8 F 54 L 18 101/64 98 11/12/20 20:28 98.2 F 55 L 18 106/64 98 11/12/20 16:00 97.6 F 57 L 16 104/47 11/12/20 13:26 52 L 16 89/55 99 11/12/20 12:40 49 L 16 89/55 11/12/20 12:26 53 L 16 81/55 11/12/20 12:11 57 L 16 92/52 11/12/20 11:56 53 L 16 84/49 11/12/20 11:41 50 L 16 94/52 99 11/12/20 11:26 96.4 F L 56 L 16 96/54 Intake and Output 11/12/20 11/13/20 11/13/20 22:59 06:59 14:59 Intake Total 850 500 Output Total 800 800 Balance 50 -800 500 Intake: IV 500 500 Oral 350 Output: Urine 800 800 - Exam Extremities: Present: normal. Absent: edema Abdomen: Present: normal appearance, soft Incision: Present: normal, intact Uterus: Present: normal, firm - Labs Labs: Abnormal Lab Results - Last 24 Hours (Table) 11/13/20 Range/Units 06:50 WBC 11.8 H (3.8-10.6) k/uL RBC 3.13 L (3.80-5.40) m/uL Hgb 10.0 L D (11.4-16.0) gm/dL Hct 30.4 L (34.0-46.0) % Neutrophils # 9.2 H (1.3-7.7) k/uL Assessment and Plan (1) Advanced maternal age (AMA) in Current Visit: Yes Status: Acute Code(s): MHT9601 - SNOMED Code(s): 546246890 (2) Previous section Current Visit: Yes Status: Acute Code(s): Z98.891 - HISTORY OF UTERINE SCAR FROM PREVIOUS SURGERY SNOMED Code(s): 189516906 (3) Rh negative status during Current Visit: Yes Status: Acute Code(s): O26.899 - OTH RELATED CONDITIONS, UNSPECIFIED TRIMESTER; Z67.91 - UNSPECIFIED BLOOD TYPE, RH NEGATIVE SNOMED Code(s): 469086099 (4) S/P section Current Visit: Yes Status: Acute Code(s): Z98.891 - HISTORY OF UTERINE SCAR FROM PREVIOUS SURGERY SNOMED Code(s): 678634877 (5) Term Current Visit: Yes Status: Acute Code(s): Z34.90 - ENCNTR FOR SUPRVSN OF NORMAL , UNSP, UNSP TRIMESTER SNOMED Code(s): 50218045 Plan: 35-year-old status post repeat section. Patient is doing well this morning, no concerns. Continue routine postoperative care. Anticipate discharge home tomorrow.
--- NOTE | 2020-11-13 10:54 | P.PN ---
Progress Note - Text Progress Note Date: 11/13/20 Anesthesia Postop day 1 Subjective: Status Post section with Duramorph. Patient seen and examined. Doing well without complaint. VAS 2 out of 10. No nausea or vomiting. Mild pruritus tolerable.. Afebrile. Gross lower extremity strength intact. Without apparent anesthetic complications. Objective: Vital signs reviewed Heart: Regular Rate Lungs: Good chest excursion Abdomen: Appears nondistended Assessment: Status post with Duramorph postop day 1 Plan: Continue current care with your medical management.
[2020-11-13] MEDS: SENNOSIDES-DOCUSATE SODIUM 1 EACH TAB PO SCH ×2 (12:17→20:51)
[2020-11-14 00:49] VITALS: TEMP 97.9
[2020-11-14] MEDS: ACETAMINOPHEN TAB 500 MG TAB PO SCH ×2 (02:59→08:58)
[2020-11-14] MEDS: IBUPROFEN 600 MG TAB PO SCH (05:52)
[2020-11-14 07:42] VITALS: BP 128/84; PULSE 65; RESP 16
--- NOTE | 2020-11-14 10:50 | P.DS ---
Providers Date of admission: 11/12/20 08:05 Expected date of discharge: 11/14/20 Attending physician: Colton Quiroz Primary care physician: Stated None - Discharge Diagnosis(es) (1) Term Current Visit: Yes Status: Acute (2) Previous section Current Visit: Yes Status: Acute (3) S/P section Current Visit: Yes Status: Acute Hospital Course: The patient is a 35-year-old 3 para 1101 was admitted at 39-0/7 weeks by good dating parameters for repeat low transverse section. Her has been uncomplicated. She does carry a history of previous 23 week intrauterine demise for which she underwent maternal medicine consultation and was recommended to undergo twice-weekly nonstress testing after 32 weeks. She carried this out and had reassuring signs throughout. She additionally was Rh- and received RhoGAM at 28 weeks. Group B strep status is negative. She was taken to the operating room where she was delivered of a viable 7 lbs. 9 oz. baby girl with Apgars of 9 at 1 minute and 9 at 5 minutes. Her postoperative course was unremarkable with vital signs remained stable and her temperature was afebrile throughout. She was deemed stable for discharge on and postoperative day #2 was discharged home to follow-up in the office in 2 weeks for an incision check and 6 weeks routinely. Discharge instructions included calling for any significantly increased bleeding or foul- smelling lochia, significantly increased fever or abdominal pain, perineal complaints, breast complaints, incisional complaints, or anything else that concerned her. She is additionally instructed to have nothing in the vagina for at least 6 weeks time to include intercourse and to abstain from any heavy lifting over the same period of time. She was lastly instructed to do no driving until off of all pain medications or 2 weeks' time, whichever came first. She understood all of her instructions and agrees to follow up as noted above. Discharge medications included continued vitamins as she has opted to breast-feed. She was otherwise to use erkj-jre-krlkuen analgesic pain medications but was additionally provided with a prescription for Tylenol 3, 1-2 by mouth every 6 hours when necessary pain, and upper 20 dispensed with no refills. Maternal blood type is A- and cord blood was sent for evaluation for the necessity of RhoGAM prior to discharge. Rubella status is immune. Discharge hemoglobin and hematocrit were 10.0 and 30.4 respectively. Procedures: #1. Repeat low transverse section Patient Condition at Discharge: Stable Plan - Discharge Summary Discharge Rx Participant: No New Discharge Prescriptions: No Action Pnv,Calcium 72/Iron/Folic Acid [ Plus Tablet] 1 each PO 1300 Aspirin 81 mg PO HS Omeprazole [PriLOSEC] 20 mg PO Q48H Ferrous Sulfate [Feosol] 325 mg PO BID Discharge Medication List Pnv,Calcium 72/Iron/Folic Acid [ Plus Tablet] 1 each PO 1300 07/30/18 [History] Aspirin 81 mg PO HS 11/03/20 [History] Ferrous Sulfate [Feosol] 325 mg PO BID 11/09/20 [History] Omeprazole [PriLOSEC] 20 mg PO Q48H 11/09/20 [History] Follow up Appointment(s)/Referral(s): Colton Quiroz MD [STAFF PHYSICIAN] - 2 Weeks Discharge Disposition: HOME SELF-CARE
== END 2020-11-14 11:15 | disposition home or self-care (01) | DRG 788 ==
LOC: 4FBP 08:05
PROVIDERS: ADMIT Obstetrics & Gynecology; ATTEND Obstetrics & Gynecology
PROC: 3E0234Z Introduction of Serum, Toxoid and Vaccine into Muscle, Percutaneous Approach (ICD-10-PCS; 2020-11-12)
PROC: 10D00Z1 Extraction of Products of Conception, Low, Open Approach (ICD-10-PCS; principal; 2020-11-12 10:19)
DX: O34.211 Maternal care for low transverse scar from previous cesarean delivery (principal); K21.9 Gastro-esophageal reflux disease without esophagitis; N85.8 Other specified noninflammatory disorders of uterus; Z3A.39 39 weeks gestation of pregnancy; Z37.0 Single live birth; O99.73 Diseases of the skin and subcutaneous tissue complicating the puerperium; L29.9 Pruritus, unspecified; O26.893 Other specified pregnancy related conditions, third trimester; Z67.11 Type A blood, Rh negative; O99.62 Diseases of the digestive system complicating childbirth; Z79.82 Long term (current) use of aspirin; Z79.899 Other long term (current) drug therapy; Z80.3 Family history of malignant neoplasm of breast; Z83.2 Family history of diseases of the blood and blood-forming organs and certain disorders involving the immune mechanism
CPT/HCPCS: 85025; 85461; 86850; 86900; 86901

== ENCOUNTER 2021-11-07 10:54 | Observation (INO) | payer BC ==
[~2021-11-07 10:54] MED LIST: HEPARIN SODIUM,PORCINE 10,000 UNIT in SODIUM CHLORIDE 0.9% 1,000 ML IRRIGATION PRN; HEPARIN SODIUM,PORCINE 2,500 UNIT in SODIUM CHLORIDE 0.9% 250 ML IRRIGATION PRN
[2021-11-07 11:54] LABS: Basophils # (A) 0.1 k/uL (0-0.2); Basophils % (A) 1 %; Eosinophils # (A) 0.1 k/uL (0-0.7); Eosinophils % (A) 2 %; HCT 40.7 % (34.0-46.0); HGB 13.3 gm/dL (11.4-16.0); Lymphocytes # (A) 1.5 k/uL (1.0-4.8); Lymphocytes % (A) 31 %; MCH 29.2 pg (25.0-35.0); MCHC 32.6 g/dL (31.0-37.0); MCV 89.5 fL (80.0-100.0); Mean Platelet Volume 7.5; Monocytes # (A) 0.3 k/uL (0-1.0); Monocytes % (A) 6 %; Neutrophils # (A) 2.8 k/uL (1.3-7.7); Neutrophils % (A) 58 %; Platelet Count 219 k/uL (150-450); RBC 4.55 m/uL (3.80-5.40); RDW 12.8 % (11.5-15.5); WBC 4.8 k/uL (3.8-10.6)
[2021-11-07 12:03] LABS: Partial Thromboplastin Time 23.3 sec (22.0-30.0); Prothrombin Time 10.7 sec (9.0-12.0)
--- NOTE | 2021-11-07 12:08 | XR ---
EXAMINATION TYPE: XR chest 2V DATE OF EXAM: 11/07/2021 COMPARISON: None INDICATION: Dysrhythmia and abnormal EKG TECHNIQUE: Frontal and lateral views of the chest are obtained. FINDINGS: The heart size is normal. The pulmonary vasculature is normal. The lungs are clear. IMPRESSION: 1. No acute pulmonary process.
[2021-11-07 12:19] LABS: ALT 31 U/L (4-34); AST 29 U/L (14-36); African American GFR (CKD) >90 (>60 ml/min/1.73 sqM); Albumin 4.4 g/dL (3.5-5.0); Alkaline Phosphatase 57 U/L (38-126); Anion Gap 9 mmol/L; Blood Urea Nitrogen 17 mg/dL (7-17); Calcium 9.3 mg/dL (8.4-10.2); Carbon Dioxide 27 mmol/L (22-30); Chloride 103 mmol/L (98-107); Glucose 90 mg/dL (74-99); Non-African American GFR(CKD) 84 (>60 ml/min/1.73 sqM); Sodium 139 mmol/L (137-145); Total Bilirubin 0.6 mg/dL (0.2-1.3); Total Protein 6.7 g/dL (6.3-8.2)
--- NOTE | 2021-11-07 12:51 | ED ---
Arrhythmia/Palpitations HPI - General Chief Complaint: Arrhythmia/Palpitations Stated Complaint: abnormal EKG Time Seen by Provider: 11/07/21 11:22 Source: patient, RN notes reviewed Mode of arrival: ambulatory Limitations: no limitations - History of Present Illness Initial Comments: 36-year-old female presents emergency Department with chief complaint of chest pain. Patient states that she's had some upset last few days when she attempted to run. She states pain started immediately when she developed right-sided chest pain, left arm pain. Patient states it felt very achy in nature. Patient states she has no significant past medical history denies hyperlipidemia hypertension diabetes she does not take any current medications. Patient states she is asymptomatic currently but did go to PCP which found to have abnormal EKG. She states she has stress test approximately 10 years ago in which she was told she had some PVCs. She does occasionally feel these episodes but states this is much different and she's never exhibited pain like this in the past. - Related Data Home Medications Medication Instructions Recorded Confirmed Vit No.180/Iron/Folic 1 each PO 1300 07/30/18 11/09/20 [ Plus Tablet] Aspirin 81 mg PO HS 11/03/20 11/09/20 Ferrous Sulfate [Feosol] 325 mg PO BID 11/09/20 11/09/20 Omeprazole [PriLOSEC] 20 mg PO Q48H 11/09/20 11/09/20 Allergies Allergy/AdvReac Type Severity Reaction Status Date / Time No Known Allergies Allergy Verified 11/07/21 11:21 Review of Systems ROS Statement: Those systems with pertinent positive or pertinent negative responses have been documented in the HPI. ROS Other: All systems not noted in ROS Statement are negative. Past Medical History Past Medical History: GERD/Reflux, Syncope History of Any Multi-Drug Resistant Organisms: None Reported Past Surgical History: Section Additional Past Surgical History / Comment(s): Section X1. Past Anesthesia/Blood Transfusion Reactions: No Reported Reaction Past Psychological History: No Psychological Hx Reported Smoking Status: Never smoker Past Alcohol Use History: Occasional Past Drug Use History: None Reported - Past Family History Sister(s) Family Medical History: Blood Disorder, Cancer Additional Family Medical History / Comment(s): Breast Cancer. Can't remember full name of blood disorder (IPT?). General Exam Limitations: no limitations General appearance: alert, in no apparent distress Head exam: Present: atraumatic, normocephalic, normal inspection Eye exam: Present: normal appearance, PERRL, EOMI. Absent: scleral icterus, conjunctival injection, periorbital swelling ENT exam: Present: normal exam, normal oropharynx, mucous membranes moist Neck exam: Present: normal inspection, full ROM. Absent: tenderness, meningismus, lymphadenopathy Respiratory exam: Present: normal lung sounds bilaterally. Absent: respiratory distress, wheezes, rales, rhonchi, stridor Cardiovascular Exam: Present: regular rate, normal rhythm, normal heart sounds. Absent: systolic murmur, diastolic murmur, rubs, gallop, clicks GI/Abdominal exam: Present: soft, normal bowel sounds. Absent: distended, tenderness, guarding, rebound, rigid Neurological exam: Present: alert Skin exam: Present: warm, dry, intact, normal color. Absent: rash Course Vital Signs 11/07/21 11/07/21 11:15 11:46 Temperature 98.2 F Pulse Rate 66 60 Respiratory 18 14 Rate Blood Pressure 125/78 129/95 O2 Sat by Pulse 100 99 Oximetry Medical Decision Making - Medical Decision Making 36-year-old female presented for chest pain patient had a normal EKG, elevation of troponin at 0.056. Patient's case discussed with cardiology patient kept nothing by mouth will be admitted to medicine and heart cath. - Lab Data Result diagrams: 11/07/21 11:37 11/07/21 11:37 Lab Results 11/07/21 11/07/21 11/07/21 Range/Units 11:37 11:37 11:37 WBC 4.8 (3.8-10.6) k/uL RBC 4.55 (3.80-5.40) m/uL Hgb 13.3 (11.4-16.0) gm/dL Hct 40.7 (34.0-46.0) % MCV 89.5 (80.0-100.0) fL MCH 29.2 (25.0-35.0) pg MCHC 32.6 (31.0-37.0) g/dL RDW 12.8 (11.5-15.5) % Plt Count 219 (150-450) k/uL MPV 7.5 Neutrophils % 58 % Lymphocytes % 31 % Monocytes % 6 % Eosinophils % 2 % Basophils % 1 % Neutrophils # 2.8 (1.3-7.7) k/uL Lymphocytes # 1.5 (1.0-4.8) k/uL Monocytes # 0.3 (0-1.0) k/uL Eosinophils # 0.1 (0-0.7) k/uL Basophils # 0.1 (0-0.2) k/uL PT 10.7 (9.0-12.0) sec INR 1.0 (<1.2) APTT 23.3 (22.0-30.0) sec Sodium 139 (137-145) mmol/L Potassium 4.0 (3.5-5.1) mmol/L Chloride 103 (98-107) mmol/L Carbon Dioxide 27 (22-30) mmol/L Anion Gap 9 mmol/L BUN 17 (7-17) mg/dL Creatinine 0.88 (0.52-1.04) mg/dL Est GFR (CKD-EPI)AfAm >90 (>60 ml/min/1.73 sqM) Est GFR (CKD-EPI)NonAf 84 (>60 ml/min/1.73 sqM) Glucose 90 (74-99) mg/dL Calcium 9.3 (8.4-10.2) mg/dL Magnesium 2.0 (1.6-2.3) mg/dL Total Bilirubin 0.6 (0.2-1.3) mg/dL AST 29 (14-36) U/L ALT 31 (4-34) U/L Alkaline Phosphatase 57 (38-126) U/L Troponin I (0.000-0.034) ng/mL Total Protein 6.7 (6.3-8.2) g/dL Albumin 4.4 (3.5-5.0) g/dL 11/07/21 Range/Units 11:37 WBC (3.8-10.6) k/uL RBC (3.80-5.40) m/uL Hgb (11.4-16.0) gm/dL Hct (34.0-46.0) % MCV (80.0-100.0) fL MCH (25.0-35.0) pg MCHC (31.0-37.0) g/dL RDW (11.5-15.5) % Plt Count (150-450) k/uL MPV Neutrophils % % Lymphocytes % % Monocytes % % Eosinophils % % Basophils % % Neutrophils # (1.3-7.7) k/uL Lymphocytes # (1.0-4.8) k/uL Monocytes # (0-1.0) k/uL Eosinophils # (0-0.7) k/uL Basophils # (0-0.2) k/uL PT (9.0-12.0) sec INR (<1.2) APTT (22.0-30.0) sec Sodium (137-145) mmol/L Potassium (3.5-5.1) mmol/L Chloride (98-107) mmol/L Carbon Dioxide (22-30) mmol/L Anion Gap mmol/L BUN (7-17) mg/dL Creatinine (0.52-1.04) mg/dL Est GFR (CKD-EPI)AfAm (>60 ml/min/1.73 sqM) Est GFR (CKD-EPI)NonAf (>60 ml/min/1.73 sqM) Glucose (74-99) mg/dL Calcium (8.4-10.2) mg/dL Magnesium (1.6-2.3) mg/dL Total Bilirubin (0.2-1.3) mg/dL AST (14-36) U/L ALT (4-34) U/L Alkaline Phosphatase (38-126) U/L Troponin I 0.056 H* (0.000-0.034) ng/mL Total Protein (6.3-8.2) g/dL Albumin (3.5-5.0) g/dL Disposition Clinical Impression: Chest pain, Elevated troponin Disposition: ADMITTED IP TO THIS HOSP Condition: Stable Referrals: Giovany Neves MD [Primary Care Provider] - 1-2 days Time of Disposition: 12:51
[2021-11-07] MEDS ORDERED: HEPARIN SODIUM 1,000 UN/ML (10ML VL) IV ONE (12:58)
[2021-11-07] MEDS ORDERED: ASPIRIN 81 MG PO STA (12:58)
[2021-11-07] MEDS ORDERED: NITROGLYCERIN SL TABS 0.4 MG TAB SUBLINGUAL PRN ×2 (12:58→13:29)
[2021-11-07] MEDS ORDERED: HEPARIN SOD,PORK IN 0.45% NACL 25,000 UNIT in 0.45% NACL 1 250ML.BAG IV SCH (13:00)
[2021-11-07] MEDS ORDERED: ASPIRIN 325 MG TAB PO STA (13:29)
[2021-11-07] MEDS ORDERED: ALPRAZolam 0.5 MG TAB PO PRN (13:29)
[2021-11-07] MEDS ORDERED: ATORVASTATIN 80 MG TAB PO STA (13:29)
[2021-11-07] MEDS ORDERED: ALPRAZolam 0.25 MG TAB PO PRN (13:29)
--- NOTE | 2021-11-07 13:36 | P.CRDCN ---
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 She was seen by her primary care physician today and had an abnormal EKG with T-wave inversion anteriorly. She did not have any significant dyspnea, dizziness or palpitations. She is active physically without any limitations and had no discomfort until this past Sunday. She has no history of PND, orthopnea or peripheral edema. She had a stress test over 10 years ago and according to her it was unremarkable. Her EKG showed T-wave inversion in the anterior precordial leads. The patient has no history of hypertension, hyperlipidemia or diabetes. She is a nonsmoker. Her troponin was mildly elevated. Medications: Non- Review of Systems: Respiratory: No history of asthma, bronchitis or recent cough. GI: No nausea or vomiting . No history of peptic ulcer disease. No recent GI bleed. : No hematuria or dysuria. Nervous System: No stroke or seizure. Physical Examination: 36-year-old female, alert, oriented in no acute distress,Blood pressure 140/90, Heart rate 60 Head: Normocephalic. Eyes: Sclerae nonicteric. Neck: Good carotid upstroke, no bruit, no jugular venous distention. Lungs: Clear to auscultation. Heart: Regular rate and rhythm, S1-S2, no S3, no rub. No murmur. Abdomen: Soft nontender, positive bowel sounds no organomegaly. Extremities: No edema, intact distal pulses. Labs: Hemoglobin 13.3, platelets 219, potassium 4, BUN 17, creatinine 0.88, troponin 0.056 EKG: Sinus rhythm, rate of 57, T-wave inversion from V2 to V5 with early repolarization changes in the inferior leads and biphasic T waves in leads 3 and aVF Impression: 1. Arm and chest discomfort with an abnormal EKG and troponin abnormality consistent with non-STEMI in a patient with no significant risk factors. The possibility of spontaneous dissection cannot be excluded. Plan: 1. Obtain an echocardiogram with Doppler 2. Proceed with cardiac catheterization, the risks and the complications were discussed with the patient who is in full understanding and agreement 3. Thank you for this consult we will follow with you Past Medical History Past Medical History: GERD/Reflux, Syncope History of Any Multi-Drug Resistant Organisms: None Reported Past Surgical History: Section Additional Past Surgical History / Comment(s): Section X1. Past Anesthesia/Blood Transfusion Reactions: No Reported Reaction Past Psychological History: No Psychological Hx Reported Smoking Status: Never smoker Past Alcohol Use History: Occasional Past Drug Use History: None Reported - Past Family History Sister(s) Family Medical History: Blood Disorder, Cancer Additional Family Medical History / Comment(s): Breast Cancer. Can't remember full name of blood disorder (IPT?). Medications and Allergies Home Medications Medication Instructions Recorded Confirmed Type No Known Home Medications 11/07/21 11/07/21 History Allergies Allergy/AdvReac Type Severity Reaction Status Date / Time No Known Allergies Allergy Verified 11/07/21 12:54 Physical Exam Vitals: Vital Signs Temp Pulse Resp BP Pulse Ox 11/07/21 12:57 61 14 143/99 100 11/07/21 11:46 60 14 129/95 99 11/07/21 11:15 98.2 F 66 18 125/78 100 Intake and Output 11/06/21 11/07/21 11/07/21 22:59 06:59 14:59 Other: Weight 54.431 kg Results 11/07/21 11:37 11/07/21 11:37 Cardiac Enzymes 11/07/21 11/07/21 Range/Units 11:37 11:37 AST 29 (14-36) U/L Troponin I 0.056 H* (0.000-0.034) ng/mL Coagulation 11/07/21 Range/Units 11:37 PT 10.7 (9.0-12.0) sec APTT 23.3 (22.0-30.0) sec CBC 11/07/21 Range/Units 11:37 WBC 4.8 (3.8-10.6) k/uL RBC 4.55 (3.80-5.40) m/uL Hgb 13.3 (11.4-16.0) gm/dL Hct 40.7 (34.0-46.0) % Plt Count 219 (150-450) k/uL Comprehensive Metabolic Panel 11/07/21 Range/Units 11:37 Sodium 139 (137-145) mmol/L Potassium 4.0 (3.5-5.1) mmol/L Chloride 103 (98-107) mmol/L Carbon Dioxide 27 (22-30) mmol/L BUN 17 (7-17) mg/dL Creatinine 0.88 (0.52-1.04) mg/dL Glucose 90 (74-99) mg/dL Calcium 9.3 (8.4-10.2) mg/dL AST 29 (14-36) U/L ALT 31 (4-34) U/L Alkaline Phosphatase 57 (38-126) U/L Total Protein 6.7 (6.3-8.2) g/dL Albumin 4.4 (3.5-5.0) g/dL Current Medications Generic Name Dose Route Start Last Admin Trade Name Freq PRN Reason Stop Dose Admin Aspirin 325 mg 11/08/21 09:00 Aspirin 325 Mg Tab PO DAILY [facility] Heparin Sodium/Sodium Chloride 250 mls @ 6.532 mls/hr 11/07/21 13:00 25,000 unit/ Sodium Chloride IV .Q24H [facility] Protocol 12 UNITS/KG/HR Nitroglycerin 0.4 mg 11/07/21 12:58 Nitroglycerin Sl Tabs 0.4 Mg Tab SUBLINGUAL Q5M PRN Chest Pain Intake and Output 11/06/21 11/07/21 11/07/21 22:59 06:59 14:59 Other: Weight 54.431 kg Patient Weight 11/08/21 06:59 Weight 54.431 kg 11/07/21 11:37 11/07/21 11:37
--- NOTE | 2021-11-07 13:43 | P.HPIM ---
History of Present Illness H&P Date: 11/07/21 36-year-old female with no significant past medical history presents the ED for bilateral shoulder and arm pain. 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 On Sunday, she was doing warmup drills with her team when she started to experience bilateral shoulder pain that radiated to both of her elbows. She describes the pain as achiness in nature. Pain is 8 out of 10 in severity. She denies any diaphoresis, nausea or vomiting chest pain or shortness of breath. Her symptoms resolved with rest. On Sunday, patient reported running 8 miles when she started to experience this pain once again. Again, her pain resolved with rest. She denies any headache, lower extremity edema, fever or chills, cough, palpitations, changes in urination or bowel habits. No changes in appetite or weight. She denies any dizziness, numbness/weakness/tingling of the extremities. She denies any history of CAD. She denies any family history of CAD. She reports that her sister was diagnosed in 2014 with Tchlw-Oyiyhyhbb-Ejlov, PVCs and mitral valve prolapse. She does not smoke cigarettes and drinks alcohol socially. These symptoms are concerning for her to come to the ED. In the ED, her vital signs are stable. CBC was unremarkable. INR was 1. CMP was unremarkable. Troponin was elevated at 0.056, EKG showed T-wave inversions in lead 3, aVR, V1-V5. Review of systems was performed and is negative except above. General: [non toxic], [no distress], [appears at stated age] Derm: [warm], [dry] Head: [atraumatic], [normocephalic], [symmetric] Eyes: [EOMI], [no lid lag], [anicteric sclera] Mouth: [no lip lesion], [mucus membranes moist] Cardiovascular: [S1S2 reg], [no murmur], [positive posterior tibial pulse bilateral], Lungs: [CTA bilateral], [no rhonchi, no rales] , [no accessory muscle use] Abdominal: [soft], [ nontender to palpation], [no guarding], [no appreciable organomegaly] Ext: [no gross muscle atrophy], [no edema], [no contractures] Neuro: [ CN II-XI grossly intact], [no focal neuro deficits] Psych: [Alert], [oriented], [appropriate affect] #Non-ST elevation NC Patient presents with symptoms concerning for non-ST elevation NC. Her troponin is elevated with EKG showing T-wave inversion in the anterior precordial leads. Cardiology has been consulted and plans for cardiac catheterization today. She was given aspirin 325 mg by mouth and Lipitor 80 mg by mouth in the ED. Patient be started on heparin drip until cardiac catheterization is performed. She'll be placed on telemetry monitoring. Echocardiogram will be ordered. DVT prophylaxis: [Heparin] Discussed with: [Patient] Anticipated discharge: [1-2 days] Anticipated discharge place: [Home] A total of [35] minutes was spent on the care of this complex patient more than 50% of the time was spent in counseling and care coordination. Patient names her decision maker if she can't make decisions for herself. Patient would like to be full code. Past Medical History Past Medical History: GERD/Reflux, Syncope History of Any Multi-Drug Resistant Organisms: None Reported Past Surgical History: Section Additional Past Surgical History / Comment(s): Section X1. Past Anesthesia/Blood Transfusion Reactions: No Reported Reaction Past Psychological History: No Psychological Hx Reported Smoking Status: Never smoker Past Alcohol Use History: Occasional Past Drug Use History: None Reported - Past Family History Sister(s) Family Medical History: Blood Disorder, Cancer Additional Family Medical History / Comment(s): Breast Cancer. Can't remember full name of blood disorder (IPT?). Medications and Allergies Home Medications Medication Instructions Recorded Confirmed Type No Known Home Medications 11/07/21 11/07/21 History Allergies Allergy/AdvReac Type Severity Reaction Status Date / Time No Known Allergies Allergy Verified 11/07/21 12:54 Physical Exam Vitals: Vital Signs Temp Pulse Resp BP Pulse Ox 11/07/21 13:38 66 18 122/77 11/07/21 12:57 61 14 143/99 100 11/07/21 11:46 60 14 129/95 99 11/07/21 11:15 98.2 F 66 18 125/78 100 Intake and Output 11/06/21 11/07/21 11/07/21 22:59 06:59 14:59 Other: Weight 54.431 kg Results CBC & Chem 7: 11/07/21 11:37 11/07/21 11:37 Labs: Abnormal Lab Results - Last 24 Hours (Table) 11/07/21 Range/Units 11:37 Troponin I 0.056 H* (0.000-0.034) ng/mL
[2021-11-07] MEDS ORDERED: VERAPAMIL 2.5 MG/ML 2 ML AMP ONE (13:56)
[2021-11-07] MEDS ORDERED: fentaNYL (PF) 50 MCG/ML 2 ML AMP ONE (13:57)
[2021-11-07] MEDS ORDERED: SODIUM CHLORIDE 0.9% 1,000 ML IV ONE (14:00)
[2021-11-07] MEDS ORDERED: fentaNYL (PF) 50 MCG/ML 2 ML AMP IVP ONE ×2 (14:00→14:03)
[2021-11-07] MEDS ORDERED: LIDOCAINE 1% INJ 10MG/ML (30 ML VIAL-PF) SQ ONE (14:03)
[2021-11-07] MEDS ORDERED: VERAPAMIL SYRINGE (5 MG/10 ML) INTRAARTER ONE (14:04)
[2021-11-07] MEDS ORDERED: NITROGLYCERIN 1000MCG/10ML SYRINGE INTRACORON ONE (14:12)
[2021-11-07] MEDS ORDERED: IOPAMIDOL-370 125ML BTL INJ ONE (14:21)
[2021-11-07] MEDS ORDERED: CLOPIDOGREL 75 MG TAB ONE (14:28)
[2021-11-07] MEDS ORDERED: CLOPIDOGREL 75 MG TAB PO ONE (14:30)
[2021-11-07] MEDS ORDERED: RX INFO: IV CONTRAST WAS GIVEN 1 EACH MISC MISCELLANE PRN (14:34)
--- NOTE | 2021-11-07 14:43 | P.CARDCATH ---
Date of Procedure: 11/07/21 Description of Procedure: Cardiac Catheterization: The patient is a 36-year-old female with no cardiac history who presented his exertional discomfort, abnormal EKG and minimal troponin elevation. Recommendations were made regarding cardiac catheterization, the risks and the complications were discussed with the patient who is in full understanding and agreement. Procedure Description: Patient was brought to rags laborer in fasting semi-sedated state after receiving Fentanyl and Benadryl achieiving moderate conscious sedated state. Using Xylocaine Anesthesia and Seldinger technique, a 6-Gibraltarian sheath was introduced in the right radial artery . Subsequently, selective coronary angiography was performed using a 5-Gibraltarian 3.5 bend Emi catheter. Multiple views of the coronary artery including hemiaxial views were obtained. The 5-Gibraltarian Pigtail catheter was used to cross the aortic valve and LVEDP was calculated. Left ventriculogram in the PEREZ view was obtained. Following that, catheter and sheath were removed. Hemostasis was obtained with deployment of TR band . There was no immediate complication. Patient was returned to room in stable condition. Of note, the patient received a total of 4000 units of intravenous heparin prior to presentation to the cardiac catheterization as well as intra-arterial verapamil. Findings: Left main: This is a large-size vessel, bifurcating to left circumflex and LAD, left main has no high-grade stenosis LAD: This is a large-size vessel, reaching the apex, giving rise to 2 diagonal branch, in the mid segment of the LAD there is evidence of diffuse stenosis with appearance suggestive of spontaneous dissection extended the mid LAD at the takeoff of the second diagonal branch is a 20% plaque. There is RO-3 flow through the vessel. Left circumflex: This is a nondominant vessel giving rise to a large obtuse marginal branch, the left circumflex and its branches have no evidence of high- grade stenosis RCA: This is a large dominant vessel, bifurcating distally into PDA and PLV, the RCA and its branches have no evidence of high-grade stenosis Left Ventriculogram: Performed in the PEREZ view revealed a normal left ventricle size and systolic function, ejection fraction is 60%, there was no significant mitral regurgitation Hemodynamics: There was no gradient across the aortic valve , LVEDP was 12-16 mmHg Conclusion: 1. 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 Right dominance 3. Normal ventricle size and systolic function 4. Normal LVEDP Recommendations: I have recommended to the medical therapy, I discussed with the patient the natural history of spontaneous dissection and spontaneous healing. The findings and the recommendations were discussed with the patient and the family and they were in full understanding and agreement. I discussed the findings with the over the phone. Duration of sedation is 20 minutes.
[2021-11-07] MEDS ORDERED: SODIUM CHLORIDE 0.9% 1,000 ML IV SCH (14:45)
[2021-11-07 20:32] VITALS: RESP 12
[2021-11-07] MEDS: METOPROLOL TARTRATE 12.5 MG TAB PO SCH (20:53)
[2021-11-07] MEDS ORDERED: METOPROLOL TARTRATE 25 MG TAB PO SCH (21:00)
[2021-11-08 03:27] LABS: Chol/HDL Ratio 2.94 Ratio; LDL Cholesterol,Calculated 70.2 mg/dL (0.0-131.0); VLDL Calculation 16.16 mg/dL (5.00-40.00)
[2021-11-08 08:43] LABS: Mean Platelet Volume 7.5; Platelet Count 214 k/uL (150-450)
[2021-11-08] MEDS: METOPROLOL TARTRATE 12.5 MG TAB PO SCH (08:45)
[2021-11-08 08:52] LABS: African American GFR (CKD) >90 (>60 ml/min/1.73 sqM); Anion Gap 9 mmol/L; Blood Urea Nitrogen 11 mg/dL (7-17); Calcium 8.7 mg/dL (8.4-10.2); Carbon Dioxide 24 mmol/L (22-30); Chloride 105 mmol/L (98-107); Glucose 92 mg/dL (74-99); Non-African American GFR(CKD) >90 (>60 ml/min/1.73 sqM); Potassium 4.4 mmol/L (3.5-5.1); Sodium 138 mmol/L (137-145)
[2021-11-08] MEDS ORDERED: ASPIRIN 81 MG PO SCH (09:00)
[2021-11-08] MEDS ORDERED: ATORVASTATIN 40 MG TAB PO SCH (09:00)
[2021-11-08] MEDS ORDERED: CLOPIDOGREL 75 MG TAB PO SCH (09:00)
[2021-11-08] MEDS ORDERED: ASPIRIN 325 MG TAB PO SCH (09:00)
--- NOTE | 2021-11-08 09:10 | P.PN ---
Subjective Progress Note Date: 11/08/21 PROGRESS NOTE The patient is a 36-year-old female with no prior history of cardiac disease who presented with chest discomfort, EKG abnormality and mild troponin elevation. She underwent cardiac catheterization that showed evidence consistent with spontaneous dissection. She is doing well this morning, ambulating without difficulty, continues to be in sinus mechanism. She denies any discomfort, dizziness or palpitations. Hemodynamically she is stable. Medications: Aspirin once a day, Lipitor 40 mg daily, Plavix 75 g daily, metoprolol 12-1/2 mg twice a day PHYSICAL EXAMINATION: Blood pressure 111/70 heart rate 60 LUNGS: Clear to auscultation HEART: Regular rate and rhythm, S1, S2. No S3. No systolic murmur ABDOMEN: Soft, nontender, no organomegaly EXTREMETIES: No edema, right radial pulse intact LAB: Troponin peak 0.061, cholesterol is 131, LDL 70 IMPRESSION: 1. 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 Obtain an echocardiogram 2. Increase physical activity 3. If stable in the afternoon probable discharge home today 4. And follow-up in one week, I discussed with her to avoid running until further evaluated. Objective - Vital Signs Vital signs: Vital Signs Temp 98.2 F 11/08/21 08:32 Pulse 59 L 11/08/21 08:32 Resp 12 11/08/21 08:34 BP 111/75 11/08/21 08:32 Pulse Ox 99 11/08/21 08:32 FiO2 Intake & Output 11/07/21 11/08/21 11/08/21 18:59 06:59 18:59 Intake Total 200 540 118 Balance 200 540 118 Weight 54.431 kg Intake: IV 200 Oral 540 118 Other: Voiding Method Toilet Toilet # Voids 2 - Labs CBC & Chem 7: 11/08/21 07:39 11/08/21 07:39 Labs: Abnormal Lab Results - Last 24 Hours (Table) 11/07/21 11/07/21 11/07/21 Range/Units 11:37 16:12 19:22 Troponin I 0.056 H* 0.057 H* 0.061 H* (0.000-0.034) ng/mL
--- NOTE | 2021-11-08 10:21 | CA ---
Transthoracic Echo Report Name: Robert Barros Age: 36 Gender: F : 1985 Exam Date: 11/08/2021 08:02 Exam Location: [facility] Ht (in): 62 Wt (lb): 120 Ordering Physician: Marcos Warren Attending/Referring Phys: [id number], Bri[employer] Luna Griffith RDCS Procedure CPT: Indications: Chest Pain Cardiac Hx: Technical Quality: Contrast 1: Total Dose (mL): Contrast 2: Total Dose (mL): MEASUREMENTS (Male / Female) Normal Values 2D ECHO LV Diastolic Diameter PLAX 4.1 cm 4.2 - 5.9 / 3.9 - 5.3 cm LV Systolic Diameter PLAX 2.9 cm IVS Diastolic Thickness 1.1 cm 0.6 - 1.0 / 0.6 - 0.9 cm LVPW Diastolic Thickness 1.1 cm 0.6 - 1.0 / 0.6 - 0.9 cm LV Relative Wall Thickness 0.5 RV Internal Dim ED PLAX 3.0 cm LA Systolic Diameter LX 2.9 cm 3.0 - 4.0 / 2.7 - 3.8 cm LA Volume 50.8 cm??? 18 - 58 / 22 - 52 cm??? M-MODE Aortic Root Diameter MM 2.6 cm LA Systolic Diameter MM 3.8 cm LA Ao Ratio MM 1.4 MV E Point Septal Separation 0.2 cm AV Cusp Separation MM 1.9 cm DOPPLER MV Area PHT 4.0 cm??? Mitral E Point Velocity 77.8 cm/s Mitral A Point Velocity 49.2 cm/s Mitral E to A Ratio 1.6 MV Deceleration Time 190.1 ms MV E' Velocity 10.6 cm/s Mitral E to MV E' Ratio 7.3 FINDINGS Left Ventricle Left ventricular ejection fraction is estimated at 50-55%. Right Ventricle Normal right ventricular size and function. Right Atrium Normal right atrial size. Left Atrium Normal left atrial size. Mitral Valve Structurally normal mitral valve. Mild mitral regurgitation. Aortic Valve Trileaflet aortic valve. Tricuspid Valve Structurally normal tricuspid valve. Trace to mild tricuspid regurgitation. Pulmonic Valve Structurally normal pulmonic valve. Pericardium Normal pericardium. Aorta Normal size aortic root and proximal ascending aorta. CONCLUSIONS Normal LV systolic function. Mild mitral regurgitation. Previewed by: Dr. Matthew Devlin MD (Electronically Signed) Final Date: 08 November 2021 10:20
[2021-11-08 10:37] LABS: Chol/HDL Ratio 2.69 Ratio; LDL Cholesterol,Calculated 69.1 mg/dL (0.0-131.0)
[2021-11-08 11:42] VITALS: BP 105/69; PULSE 46; TEMP 97.7
--- NOTE | 2021-11-08 12:32 | P.DS ---
Providers Date of admission: 11/07/21 12:58 Expected date of discharge: 11/08/21 Attending physician: Angela Prasad MD Consults: 11/07/21 12:58 Consult Physician Urgent Consulting Provider: Bonifacio Patel Consult Reason/Comments: chest pain Do you want consulting provider notified?: Already Contacted Primary care physician: Giovany Neves Hospital Course: Discharge Diagnosis: Non-ST elevation WA with evidence consistent with spontaneous coronary dissection Hospital Course: The patient is a 36-year-old female with no prior history of cardiac disease who presented with chest discomfort, EKG abnormality and mild troponin elevation. She underwent cardiac catheterization that showed evidence consistent with spontaneous dissection. Cardiology recommended medical therapy. Cardiolite also discussed with the patient that the dissection will heal spontaneously. Cardiology started the patient on aspirin and Plavix and statin and beta agus. At the time of discharge patient denied any discomfort dizziness or palpitations. She was hemodynamically stable. Her echocardiogram was unre markable. Patient was then deemed stable for discharge and instructed to follow-up with cardiology in 1 week. She was also told to avoid strenuous activities until seen by cardiology. Patient seen and examined at bedside.[] Vital signs reviewed and stable. General: [non toxic], [no distress], [appears at stated age] Derm: [warm], [dry] Head: [atraumatic], [normocephalic], [symmetric] Eyes: [EOMI], [no lid lag], [anicteric sclera] Mouth: [no lip lesion], [mucus membranes moist] Cardiovascular: [S1S2 reg], [no murmur], [positive posterior tibial pulse bilateral], Lungs: [CTA bilateral], [no rhonchi, no rales] , [no accessory muscle use] Abdominal: [soft], [ nontender to palpation], [no guarding], [no appreciable organomegaly] Ext: [no gross muscle atrophy], [no edema], [no contractures] Neuro: [ CN II-XI grossly intact], [no focal neuro deficits] Psych: [Alert], [oriented], [appropriate affect] A total of [33] minutes of time were spent preparing this complex discharge summary . Patient Condition at Discharge: Good Plan - Discharge Summary Discharge Rx Participant: Yes New Discharge Prescriptions: New Aspirin 81 mg PO DAILY #30 tab Atorvastatin [Lipitor] 40 mg PO DAILY #30 tab Metoprolol Tartrate [Lopressor] 12.5 mg PO BID #60 tab Clopidogrel [Plavix] 75 mg PO DAILY #30 tab Discharge Medication List Aspirin 81 mg PO DAILY #30 tab 11/08/21 [Rx] Atorvastatin [Lipitor] 40 mg PO DAILY #30 tab 11/08/21 [Rx] Clopidogrel [Plavix] 75 mg PO DAILY #30 tab 11/08/21 [Rx] Metoprolol Tartrate [Lopressor] 12.5 mg PO BID #60 tab 11/08/21 [Rx] Follow up Appointment(s)/Referral(s): Bonifacio Patel MD [STAFF PHYSICIAN] - 1 Week Giovany Neves MD [Primary Care Provider] - 1-2 days Discharge Disposition: HOME SELF-CARE
== END 2021-11-08 17:10 | disposition home or self-care (01) ==
LOC: EC 10:54 → 3SCARD 12:58
PROVIDERS: ADMIT Family Medicine; ATTEND Family Medicine
DX: I21.4 Non-ST elevation (NSTEMI) myocardial infarction (principal); I25.42 Coronary artery dissection; R94.31 Abnormal electrocardiogram [ECG] [EKG]; K21.9 Gastro-esophageal reflux disease without esophagitis; R55 Syncope and collapse; Z98.891 History of uterine scar from previous surgery; Z80.3 Family history of malignant neoplasm of breast; Z83.2 Family history of diseases of the blood and blood-forming organs and certain disorders involving the immune mechanism; Z82.49 Family history of ischemic heart disease and other diseases of the circulatory system; Z79.82 Long term (current) use of aspirin; Z79.899 Other long term (current) drug therapy
CPT/HCPCS: 99285; 36415; 94760; 93005; 93306; 93458; 80061 ×2; 80053; 80048; 83735; 84484; 85025; 85049; 85610; 85730; 71046; G0378 ×2; C1769 ×2; C1894; J2001; J3010; J1644; Q9967

== ENCOUNTER → 2021-12-13 | Outpatient (CLI) | payer BC ==
--- NOTE | 2021-12-14 17:23 | MM ---
Reason for Exam: Screening (asymptomatic). Last mammogram was performed 3 year(s) and 0 month(s) ago. Patient History: Menarche at age 12. First Full-Term at age 32. Late child-bearing (after 28). Hormonal Contraceptives, from age 16 until age 31. Maternal aunt had breast cancer, age 40. Sister had breast cancer, age 43. Last menstrual period: 11/28/2021 Risk Values: Marilynn 5 year model risk: 0.8%. NCI Lifetime model risk: 17.9%. Prior Study Comparison: 11/19/2018 Bilateral Screening Mammogram, [facility]. Tissue Density: The breast tissue is extremely dense which could obscure a lesion on mammography. Findings: Analyzed By CAD. Pattern appears stable. Benign scattered calcifications are present. No suspicious groups of microcalcifications, spiculated or lobular masses, architectural distortion or other secondary signs of malignancy are mammographically apparent. Overall Assessment: Benign, BI-RAD 2 Management: Screening Mammogram of both breasts in 1 year. A negative mammogram report should not preclude additional follow up of suspicious palpable abnormalities. Patient should continue monthly self breast exam. A clinical breast exam by your physician is recommended on an annual basis and results should be correlated with mammographic findings. Electronically signed and approved by: Agus Lu D.O. Radiologis
== END | disposition home or self-care (01) ==
LOC: RADMAMWWP 15:34
PROVIDERS: ATTEND Pediatrics
DX: Z12.31 Encounter for screening mammogram for malignant neoplasm of breast (principal); Z80.3 Family history of malignant neoplasm of breast
CPT/HCPCS: 77063; 77067

== ENCOUNTER → 2021-12-13 | Outpatient (CLI) | payer BC ==
--- NOTE | 2021-12-13 16:38 | XR ---
EXAMINATION TYPE: XR foot complete LT DATE OF EXAM: 12/13/2021 Comparison: 3 views Clinical History: 36-year-old female M79.672 PAIN IN LEFT FOOT Findings: There is prominent bunion formation. Some possible subtle well-defined erosion with corticated margin seen along the dorsomedial aspect of the first metatarsal head. Mild hallux valgus. No soft tissue c alcifications. No acute fracture, subluxation, dislocation seen. Impression: Prominent bunion versus other etiology of soft tissue swelling medial to the first metatarsal head. C orrelate to exclude gout. Mild hallux valgus. No acute osseous abnormality seen.
== END | disposition home or self-care (01) ==
LOC: RADXRMAIN 15:23
PROVIDERS: ATTEND Pediatrics
DX: M79.672 Pain in left foot (principal)

== ENCOUNTER → 2022-01-09 | Outpatient (CLI) | payer BC ==
--- NOTE | 2022-01-09 11:05 | CT ---
EXAMINATION TYPE: CT brain w con CT DLP: 1054.5 mGycm, Automated exposure control for dose reduction was used. DATE OF EXAM: 01/09/2022 10:23 AM COMPARISON: MR brain 08/28/2013 03/30/2015 CLINICAL INDICATION:Female, 36 years old with history of I25.42 CORONARY ARTERY DISSECTION;Spontaneou s coronary artery dissection TECHNIQUE: Axial CT images of the brain were obtained with coronal and sagittal reformats created and reviewed. Contrast used:100-from CTA study mL of Isovue 370 with IV Contrast, Oral contrast used: none. FINDINGS: Extra-axial spaces: No abnormal extra-axial fluid collections. Ventricular system: Within normal limits Cerebral parenchyma: No acute intraparenchymal hemorrhage or mass effect. The franz-white junction is well differentiated. No abnormal enhancement is seen after the administration of intravenous contras t. Cerebellum: Unremarkable. Mass effect: No evidence of midline shift. Intracranial vasculature: Visualized the intracranial vasculature appears normal. Soft tissues: Normal. Calvarium/osseous structures: No depressed skull fracture. Paranasal sinuses and mastoid air cells: Clear. Visualized orbits: Orbital contents are intact. IMPRESSION: No acute intracranial process. Intracranial vasculature appears normal.
--- NOTE | 2022-01-09 11:12 | CT ---
EXAMINATION TYPE: CT angio abdomen CT DLP: 279 mGycm, Automated exposure control for dose reduction was used. DATE OF EXAM: 01/09/2022 10:29 AM COMPARISON: None CLINICAL INDICATION:Female, 36 years old with history of I25.42 CORONARY ARTERY DISSECTION, Spontaneo us coronary artery dissection TECHNIQUE: Multiple thin slice sub-millimeter images were obtained through the abdomen,after administ ration of contrast. 3-D reconstructed images and maximum intensity projection images were obtained o f the abdomen. CT Contrast: Contrast used:100 mL of Isovue 370 without and with IV Contrast, Oral contrast used: None FINDINGS: CTA Abdomen and pelvis: The abdominal aorta does not demonstrate aneurysmal dilatation. No evidence o f intramural hematoma or dissection. The origins of the superior mesenteric artery, renal arteries, inferior mesenteric artery, and celiac axis are patent. There are 2 renal arteries bilaterally. The iliac vessels are normal in morphology LOWER CHEST: No evidence of focal consolidation, pneumothorax or pleural effusion. LIVER: Arterial phase enhancing 16 mm focus in the right hepatic lobe. GALLBLADDER AND BILE DUCTS: Unremarkable. PANCREAS: Unremarkable. SPLEEN: Unremarkable. ADRENAL GLANDS: Unremarkable. KIDNEYS AND URETERS: No evidence of hydronephrosis or renal calculus. The ureters are unremarkable. PELVIS BLADDER: Unremarkable REPRODUCTIVE: Unremarkable. ABDOMEN & PELVIS STOMACH AND BOWEL: No evidence of bowel obstruction. PERITONEUM: No evidence of pneumoperitoneum or free fluid. VASCULATURE: No evidence of aortic aneurysm. MUSCULOSKELETAL: No acute osseous abnormalities LYMPH NODES: No gross evidence for lymphadenopathy. SOFT TISSUE/ABDOMINAL WALL: Unremarkable IMPRESSION 1. No evidence of vascular occlusion. 2. No evidence of aortic or vascular dissection. 3. Arterial enhancing right hepatic lobe lesion measuring up to 16 mm which is indeterminate. Conside r MRI or CT liver mass protocol for further characterization.
== END | disposition home or self-care (01) ==
LOC: RADCTMAIN 09:49
PROVIDERS: ATTEND Internal Medicine Interventional Cardiology
DX: I25.42 Coronary artery dissection (principal); K76.9 Liver disease, unspecified
CPT/HCPCS: 70460; 74175; Q9967

== ENCOUNTER → 2023-03-02 | Outpatient (CLI) | payer BC ==
--- NOTE | 2023-03-02 11:24 | MM ---
Reason for Exam: Additional evaluation requested from prior study. Last mammogram was performed 1 year(s) and 3 month(s) ago. Patient History: Menarche at age 12. First Full-Term at age 32. Late child-bearing (after 30). Hormonal Contraceptives, from age 16 until age 31. Maternal aunt had breast cancer, age 40. Sister had breast cancer, age 43. Risk Values: Marilynn 5 year model risk: 0.9%. NCI Lifetime model risk: 17.8%. Prior Study Comparison: 11/19/2018 Bilateral Screening Mammogram, [facility]. 12/13/2021 Bilateral MG 3D screening mammo w/cad, [facility]. Tissue Density: The breast tissue is heterogeneously dense. This may lower the sensitivity of mammography. Findings: Analyzed By CAD. Pattern appears stable. No suspicious interval change is evident. No suspicious groups of microcalcifications, spiculated or lobular masses, architectural distortion or other secondary signs of malignancy are mammographically apparent. Overall Assessment: Negative, BI-RAD 1 Management: Screening Mammogram of both breasts in 1 year. A negative mammogram report should not preclude additional follow up of suspicious palpable abnormalities. Patient should continue monthly self breast exam. A clinical breast exam by your physician is recommended on an annual basis and results should be correlated with mammographic findings. Electronically signed and approved by: Agus Lu D.O. Radiologis
== END | disposition home or self-care (01) ==
LOC: RADMAMWWP 11:00
PROVIDERS: ATTEND Pediatrics
DX: N64.4 Mastodynia (principal); R92.333 Mammographic heterogeneous density, bilateral breasts; Z80.3 Family history of malignant neoplasm of breast
CPT/HCPCS: 77062; 77066

== ENCOUNTER 2024-05-20 10:14 | Observation (INO) | payer BC ==
--- NOTE | 2024-05-20 10:42 | ED ---
Chest Pain HPI - General Chief Complaint: Chest Pain Stated Complaint: Chest pain,dizziness Time Seen by Provider: 05/20/24 10:39 Source: patient, RN notes reviewed, old records reviewed Mode of arrival: ambulatory Limitations: no limitations - History of Present Illness Initial Comments: 38-year-old female with a past medical history significant of coronary artery dissection (2021) and GERD presenting the emergency department for evaluation of chest pain. Patient states she was doing sprint intervals this morning when she started to experience a centralized sharp chest discomfort. She denies any radiation. She does report her bilateral upper extremities felt extremely heavy and was complaining of bilateral elbow pain. She also endorses mild shortness of breath. She states the symptoms feel similar to when she was having a coronary artery dissection prior. Patient states she began to walk and symptoms soon resolved. She is currently asymptomatic. She does report feeling mildly dizzy during this episode this is also since resolved. Patient states she takes a baby aspirin and atorvastatin daily and did take these medications today. Canelo jonhbrennon is following up with Dr. Patel, cardiology. Patient denies any recent fevers, cough, congestion, nausea, vomiting, abdominal pain, peripheral edema or other complaints. - Related Data Home Medications Medication Instructions Recorded Confirmed Atorvastatin [Lipitor] 20 mg PO DAILY 05/20/24 05/20/24 Previous Rx's Medication Instructions Recorded Aspirin 81 mg PO DAILY #30 tab 11/08/21 Allergies Allergy/AdvReac Type Severity Reaction Status Date / Time No Known Allergies Allergy Verified 05/20/24 10:55 Review of Systems ROS Statement: Those systems with pertinent positive or pertinent negative responses have been documented in the HPI. ROS Other: All systems not noted in ROS Statement are negative. EKG Findings - EKG Comments: EKG Findings:: EKG taken at 10: 31 showing a sinus rhythm. Inverted T waves in V3. Ventricular rate 63, interval 161, QRS duration 85, QT/QTc 420/428. Past Medical History Past Medical History: GERD/Reflux, Syncope History of Any Multi-Drug Resistant Organisms: None Reported Past Surgical History: Section, Heart Catheterization With Stent Additional Past Surgical History / Comment(s): Section X1. Past Anesthesia/Blood Transfusion Reactions: No Reported Reaction Past Psychological History: No Psychological Hx Reported Smoking Status: Never smoker Past Alcohol Use History: Occasional Past Drug Use History: None Reported - Past Family History Sister(s) Family Medical History: Blood Disorder, Cancer Additional Family Medical History / Comment(s): Breast Cancer. Can't remember full name of blood disorder (IPT?). General Exam Limitations: no limitations General appearance: alert, in no apparent distress Respiratory exam: Present: normal lung sounds bilaterally. Absent: respiratory distress, wheezes, rales, rhonchi, stridor Cardiovascular Exam: Present: regular rate, normal rhythm, normal heart sounds. Absent: systolic murmur, diastolic murmur, rubs, gallop, clicks Extremities exam: Present: normal inspection, full ROM, normal capillary refill (2+ equal radial pulses bilaterally. 2+ equal PT pulses bilaterally). Absent: tenderness, pedal edema, joint swelling, calf tenderness Neurological exam: Present: alert, oriented X3, CN II-XII intact Skin exam: Present: warm, dry, intact, normal color. Absent: rash Course Vital Signs 05/20/24 05/20/24 05/20/24 10:15 10:39 11:56 Temperature 97.5 F L Pulse Rate 73 55 L Pulse Rate [ 74 Apical] Respiratory 20 20 Rate Blood Pressure 109/77 101/74 O2 Sat by Pulse 99 99 Oximetry 05/20/24 05/20/24 12:57 15:31 Temperature Pulse Rate 78 56 L Pulse Rate [ Apical] Respiratory 14 12 Rate Blood Pressure 114/87 119/78 O2 Sat by Pulse 100 Oximetry - Reevaluation(s) Reevaluation #1: 05/20/24 11:47 Patient reevaluated. No signs of acute distress. Patient updated on laboratory results. Patient agreeable for second troponin. 05/20/24 14:33 Case discussed with . He requested CTA of aorta prior to admission. CTA ordered. 05/20/24 16:24 Case rediscussed with , who accepts admission. Chest Pain MDM - MDM Was pt. sent in by a medical professional or institution (, PA, DEHAIRER, urgent care, hospital, or [facility]...) When possible be specific @ -No Did you speak to anyone other than the patient for history (EMS, parent, family, police, friend...)? What history was obtained from this source @ -No Did you review nursing and triage notes (agree or disagree)? Why? @ -I reviewed and agree with nursing and triage notes Were old charts reviewed (outside hosp., previous admission, EMS record, old EKG, old radiological studies, urgent care reports/EKG's, [facility] records)? Report findings @ -Cardiac catheterization completed in 2021. Differential Diagnosis (chest pain, altered mental status, abdominal pain women, abdominal pain men, vaginal bleeding, weakness, fever, dyspnea, syncope, headache, dizziness, GI bleed, back pain, seizure, CVA, palpatations, mental health, musculoskeletal)? @ -Differential Chest Pain:Stable Angina, Unstable Angina, STEMI, NSTEMI Aortic Dissection, Pneumothorax, Musculoskeletal, Esophageal Spasm GERD, Cholecystitis, Pancreatitis, Zoster, this is not meant to be an all-inclusive list. EKG interpreted by me (3pts min.). @ -As above X-rays interpreted by me (1pt min.). @ -CXR showing no acute cardiopulmonary process. CT interpreted by me (1pt min.). @ -CTA chest abdomen pelvis negative for aneurysm or dissection of the thoracic or abdominal aorta. No significant abnormality within the abdomen or pelvis. U/S interpreted by me (1pt. min.). @ -None done What testing was considered but not performed or refused? (CT, X-rays, U/S, labs)? Why? @ -None What meds were considered but not given or refused? Why? @ -None Did you discuss the management of the patient with other professionals (rodolfo mueller i.e. , PA, DEHAIRER, lab, RT, psych nurse, social services director, route carrier, teacher, occupational medicine officer, case sealer)? Give summary @ -Yes, case discussed with Dr. Quesada who requested CTA chest abdomen pelvis prior to admission. He then accepted admission. Was smoking cessation discussed for >3mins.? @ -No Was critical care preformed (if so, how long)? @ -No Were there social determinants of health that impacted care today? How? (Homelessness, low income, unemployed, alcoholism, drug addiction, transportation, low edu. Level, literacy, decrease access to med. care, group home, rehab)? @ -No Was there de-escalation of care discussed even if they declined (Discuss DNR or withdrawal of care, Hospice)? DNR status @ -No What co-morbidities impacted this encounter? (DM, HTN, Smoking, COPD, CAD, Cancer, CVA, ARF, Chemo, Hep., AIDS, mental health diagnosis, sleep apnea, morbid obesity)? @ -History of coronary artery dissection Was patient admitted / discharged? Hospital course, mention meds given and route, prescriptions, significant lab abnormalities, going to OR and other pertinent info. @ -Admitted. 38-year-old female presented to the ER for evaluation of chest pain. Upon arrival, vitals with acceptable limits. Patient in no signs of acute distress. Patient denying any current chest discomfort or symptoms. Patient is neurovascularly intact. Cardiac workup initiated and remarkable for an undetectable troponin. Repeat troponin 0.018. EKG similar to prior showing a sinus rhythm with inverted T waves in V3. Given patient's cardiac history and second troponin is not undetectable, admission was considered and discussed with Dr. Quesada. He requested CTA chest/abdomen/pelvis prior to admission. This was completed and negative for aneurysm or dissection of thoracic or abdominal aorta. No significant abnormality within the abdomen pelvis. CTA findings were discussed with Dr. Quesada who accepted admission. Patient given 81mg aspirin in ER. Patient agreeable for admssion. Patient admitted instable condition. Cardiology on conuslt. Case discussed with ED attending, Dr. Robertson. Undiagnosed new problem with uncertain prognosis? @ -No Drug Therapy requiring intensive monitoring for toxicity (Heparin, Nitro, Insulin, Cardizem)? @ -No Were any procedures done? @ -No Diagnosis/symptom? @ -Chest pain Acute, or Chronic, or Acute on Chronic? @ -Acute Uncomplicated (without systemic symptoms) or Complicated (systemic symptoms)? @ -Complicated Side effects of treatment? @ -No Exacerbation, Progression, or Severe Exacerbation? @ -No Poses a threat to life or bodily function? How? (Chest pain, USA, SC, pneumonia, PE, COPD, DKA, ARF, appy, cholecystitis, CVA, Diverticulitis, Homicidal, Suicidal, threat to staff... and all critical care pts) @ -Yes, cannot rule out ACS Disposition Clinical Impression: Chest pain Disposition: ADMITTED IP TO THIS [facility] Condition: Stable Referrals: Giovany Neves MD [Primary Care Provider] - 1-2 days Time of Disposition: 16:25
[2024-05-20 10:48] LABS: Basophils % (A) 1 %; Eosinophils # (A) 0.1 k/uL (0-0.7); Eosinophils % (A) 3 %; HCT 45.4 % (34.0-46.0); HGB 14.5 gm/dL (11.4-16.0); Lymphocytes # (A) 1.4 k/uL (1.0-4.8); Lymphocytes % (A) 31 %; MCH 28.9 pg (25.0-35.0); MCHC 31.8 g/dL (31.0-37.0); MCV 90.7 fL (80.0-100.0); Mean Platelet Volume 7.5; Monocytes # (A) 0.2 k/uL (0-1.0); Monocytes % (A) 4 %; Neutrophils # (A) 2.7 k/uL (1.3-7.7); Neutrophils % (A) 61 %; Platelet Count 237 k/uL (150-450); RDW 13.2 % (11.5-15.5); WBC 4.4 k/uL (3.8-10.6)
[2024-05-20 11:01] LABS: Partial Thromboplastin Time 22.6 sec (22.0-30.0); Prothrombin Time 11.2 sec (10.0-12.5)
--- NOTE | 2024-05-20 11:01 | XR ---
EXAMINATION TYPE: XR chest 2V DATE OF EXAM: 05/20/2024 10:53 AM COMPARISON: Chest radiographs from 11/07/2021. CLINICAL INDICATION: Female, 38 years old with history of chest pain; [facility] TECHNIQUE: XR chest 2V Frontal and lateral views of the chest. FINDINGS: Lungs/Pleura: There is no evidence of pleural effusion, focal consolidation, or pneumothorax. Pulmonary vascularity: Unremarkable. Heart/mediastinum: Cardiomediastinal silhouette is unremarkable. Musculoskeletal: No acute osseous pathology. IMPRESSION: No acute cardiopulmonary disease/process. [facility], , 05/20/2024 10:58 AM
[2024-05-20 11:05] LABS: ALT 45 U/L (4-34); AST 42 U/L (14-36); African American GFR (CKD) >90 (>60 ml/min/1.73 sqM); Albumin 4.7 g/dL (3.5-5.0); Alkaline Phosphatase 60 U/L (38-126); Anion Gap 10 mmol/L; Blood Urea Nitrogen 12 mg/dL (7-17); Calcium 9.4 mg/dL (8.4-10.2); Carbon Dioxide 26 mmol/L (22-30); Chloride 102 mmol/L (98-107); Glucose 95 mg/dL (74-99); Magnesium 1.9 mg/dL (1.6-2.3); Non-African American GFR(CKD) 90 (>60 ml/min/1.73 sqM); Potassium 4.2 mmol/L (3.5-5.1); Sodium 138 mmol/L (137-145); Total Bilirubin 0.8 mg/dL (0.2-1.3); Total Protein 7.4 g/dL (6.3-8.2)
[2024-05-20] MEDS: ASPIRIN 81 MG PO STA (14:55)
--- NOTE | 2024-05-20 15:53 | CT ---
CTA chest abdomen and pelvis. HISTORY: Chest pain with history of coronary artery dissection. COMPARISON: 01/09/2022. TECHNIQUE: Multiple axial images are obtained through the chest abdomen and pelvis before and after t he uneventful administration nonionic IV contrast material. 3-D postprocessing was performed. FINDINGS: There is no aneurysm or dissection of the thoracic or abdominal aorta. The renal and mesenteric arter y origins are patent without aneurysm or stenosis. There is a stable 14 15 mm enhancing lesion in the right lobe of the liver which most likely represen ts a benign hemangioma. Gallbladder is normal and is no gallstones or biliary ductal dilatation. There is no focal mass or organomegaly involving the pancreas, spleen or adrenal glands. There is no solid renal mass or hydronephrosis. There is no retroperitoneal adenopathy. The bowel loops are normal in caliber. No dilatation or obstruction. No inflammatory changes identifi ed in the bowel wall mesentery. There is no free peritoneal air or fluid. No pelvic mass, free fluid, abscess or adenopathy. The osseous structures are intact IMPRESSION: No aneurysm or dissection of the thoracic or abdominal aorta. No significant abnormality seen within the abdomen or pelvis. [facility], , 05/20/2024 3:50 PM
[2024-05-20] MEDS ORDERED: NALOXONE 0.4 MG/ML 1 ML VIAL IV PRN (16:24)
[2024-05-20] MEDS ORDERED: IBUPROFEN 400 MG TAB PO PRN (16:24)
[2024-05-20] MEDS ORDERED: ACETAMINOPHEN TAB 325 MG TAB PO PRN (16:24)
[2024-05-20] MEDS: ENOXAPARIN 40 MG/0.4 ML SYRINGE SQ SCH (20:58)
--- NOTE | 2024-05-20 21:13 | P.HPIM ---
History of Present Illness H&P Date: 05/20/24 Chief Complaint: Chest pain Pleasant 38-year-old patient, follows with Dr. Jeff Neves. Back in 2021 patient had a chest pain presentation to the hospital. Cardiac catheterization Dr. Patel showed a mid LAD spontaneous dissection. Otherwise EF was good. Patient is very active and runs about 5 times a week a few miles. No other cardiac history. Today after running for about 3 miles she fell this pain in the middle of the chest. Discomfort with both arms and just did not feel right. Decided to stop running. Review of systems: GEN.: None EYES: None HEENT: None NECK: None RESPIRATORY: None CARDIOVASCULAR: [As above GASTROINTESTINAL: None GENITOURINARY: None MUSCULOSKELETAL: None LYMPHATICS: None HEMATOLOGICAL: None PSYCHIATRY: None NEUROLOGICAL: None Social history: Lives with her . 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 Drinks alcohol occasionally. No smoking. No use of any recreational drugs Physical examination: VITAL SIGNS: 98.2, 57, 16, 131 x 86, 99% room air GENERAL: BMI 22.3, reclined bed awake comfortable. EYES: Pupils equal. Conjunctiva wendy l. HEENT: External appearance of nose and ears normal, oral cavity grossly normal. NECK: JVD not raised; masses not palpable. HEART: First and second heart sounds are normal; no edema. LUNGS: Respiratory rate normal; clear to auscultation. ABDOMEN: Soft, nontender, liver spleen not palpable, no masses palpable. PSYCH: Alert and oriented x3; mood and affect wendy l. MUSCULOSKELETAL:No Clubbing/cyanosis;muscles-grossly intact NEUROLOGICAL: Cranial nerves grossly intact; no facial asymmetry, power and sensation grossly intact. LYMPHATICS: No lymph nodes palpable in the axilla and neck INVESTIGATIONS, reviewed in the clinical context: EKG tracing personally reviewed by me-sinus rhythm. Flipped T waves anterior leads. Chest x-ray film personally reviewed by me-unremarkable May 20, 2024: White count 4.4 hemoglobin 14.5 platelets 237 potassium 4.2 creatinine 0.82 AST 42 ALT 45 Troponin I less than 0.012, 0.018, 0.[address] angio of the chest abdomen pelvis: Unremarkable Assessment plan: -Anterior chest wall pain. This is in a patient in 2021 had spontaneous mid LAD dissection. Patient is physically very active with a longer around her. Patient EKG showing flipped T waves in anterior leads. The first troponin was less than 0.012. Given her prior presentation patient will be observed. Telemetry. Serial cardiac enzymes. Cardiology consulted -Mild transaminitis. Check hepatic ultrasound. Care was discussed with the patient. Past Medical History Past Medical History: GERD/Reflux, Syncope Additional Past Medical History / Comment(s): Spontaneous coronary artery dissection. History of Any Multi-Drug Resistant Organisms: None Reported Past Surgical History: Section, Heart Catheterization Additional Past Surgical History / Comment(s): Section X1. Past Anesthesia/Blood Transfusion Reactions: No Reported Reaction Past Psychological History: No Psychological Hx Reported Smoking Status: Never smoker Past Alcohol Use History: Occasional Past Drug Use History: None Reported - Past Family History Sister(s) Family Medical History: Blood Disorder, Cancer Additional Family Medical History / Comment(s): Breast Cancer. Can't remember full name of blood disorder (IPT?). Medications and Allergies Home Medications Medication Instructions Recorded Confirmed Type Aspirin 81 mg PO DAILY #30 tab 11/08/21 05/20/24 Rx Atorvastatin [Lipitor] 20 mg PO DAILY 05/20/24 05/20/24 History Allergies Allergy/AdvReac Type Severity Reaction Status Date / Time No Known Allergies Allergy Verified 05/20/24 10:55 Physical Exam Vitals: Vital Signs Temp Pulse Pulse Resp BP Pulse Ox 05/20/24 20:02 98.2 F 57 L 16 131/86 99 05/20/24 18:18 62 14 116/81 99 05/20/24 15:31 56 L 12 119/78 100 05/20/24 12:57 78 14 114/87 05/20/24 11:56 55 L 20 101/74 99 05/20/24 10:39 74 05/20/24 10:15 97.5 F L 73 20 109/77 99 Intake and Output 05/20/24 05/20/24 05/20/24 06:59 14:59 22:59 Other: Weight 57.153 kg 57.153 kg Results CBC & Chem 7: 05/20/24 10:38 05/20/24 10:36 Labs: Abnormal Lab Results - Last 24 Hours (Table) 05/20/24 Range/Units 10:36 AST 42 H (14-36) U/L ALT 45 H (4-34) U/L Thrombosis Risk Factor Assmnt - Choose All That Apply Any of the Below Risk Factors Present?: No Other Risk Factors: No Other congenital or acquired thrombophilia - If yes, enter type in comment: No Thrombosis Risk Factor Assessment Level: Very Low Risk
[2024-05-21] MEDS: ASPIRIN 81 MG PO SCH (10:16)
[2024-05-21] MEDS: ATORVASTATIN 20 MG TAB PO SCH (10:16)
[2024-05-21] MEDS ORDERED: NITROGLYCERIN OINT 1 INCH/GM PACKET TOPICAL PRN (10:47)
[2024-05-21] MEDS ORDERED: NITROGLYCERIN SL TABS 0.4 MG TAB SUBLINGUAL PRN (11:14)
[2024-05-21] MEDS ORDERED: ALPRAZolam 0.5 MG TAB PO PRN (11:14)
[2024-05-21] MEDS ORDERED: ALPRAZolam 0.25 MG TAB PO PRN (11:14)
[2024-05-21 11:51] LABS: Basophils % (A) 1 %; Eosinophils # (A) 0.2 k/uL (0-0.7); Eosinophils % (A) 2 %; HCT 44.4 % (34.0-46.0); Lymphocytes # (A) 1.3 k/uL (1.0-4.8); Lymphocytes % (A) 22 %; MCH 29.3 pg (25.0-35.0); MCHC 31.6 g/dL (31.0-37.0); MCV 92.7 fL (80.0-100.0); Mean Platelet Volume 7.7; Monocytes # (A) 0.4 k/uL (0-1.0); Monocytes % (A) 6 %; Neutrophils # (A) 4.3 k/uL (1.3-7.7); Neutrophils % (A) 69 %; Platelet Count 243 k/uL (150-450); RBC 4.79 m/uL (3.80-5.40); RDW 13.4 % (11.5-15.5); WBC 6.2 k/uL (3.8-10.6)
[2024-05-21 12:22] LABS: Partial Thromboplastin Time 22.9 sec (22.0-30.0); Prothrombin Time 11.4 sec (10.0-12.5)
[2024-05-21 12:56] LABS: Glucose,Whole Blood 89 mg/dL (70-110)
--- NOTE | 2024-05-21 13:19 | P.CRDCN ---
History of Present Illness Consult date: 05/21/24 Consult reason: chest pain History of present illness: This is a 38-year-old female patient of Dr. Patel with past medical history of spontaneous dissection of the mid LAD, mixed hyperlipidemia. We have been asked to evaluate the patient for chest pain. Patient states that she typically runs and she is preparing for a marathon. She typically runs 50 miles per week in preparation for the marathon. 2 days/week she does an intense hill sprint type workout. She states that yesterday she was running a little harder than her baseline and she developed chest pain with heaviness and difficulty in breathing. It lasted about 10 minutes. She states she stopped running and she felt off in general. She then walked back to her car which took her about 10 minutes and by that time the pain had resolved. Pain did not get worse with deep breathing. She denies palpitations, no lightheadedness or dizziness. She states that on Sunday she ran 20 miles and felt fine and yesterday she ran 3 miles and felt fine. Patient's initial 3 troponins were negative and a fourth 1 was requested. This unfortunately came back elevated. Discussed findings with the patient and recommendations for cardiac catheterization. Patient was agreeable to move forward with this and this will be scheduled tomorrow with Dr. Patel. Blood pressure 103/63, heart rate 60, pulse ox 99% on room air. Patient has been afebrile. -EKG: Sinus rhythm with T wave inversions similar to previous EKGs. -Chest x-ray: No acute process. -CTA chest abdomen pelvis: No aneurysm no dissection of the thoracic or abdominal aorta. No significant abnormality seen within the abdomen or pelvis. -Laboratory studies: CBC, INR, electrolytes, renal function all within normal limits. Troponin negative x 3 followed by 0.113. AST 42, ALT 45. -Home cardiac medications: Aspirin 81 mg daily, atorvastatin 20 mg daily. Hide history -Cardiac catheterization 11/07/2021: Evidence suggestive of spontaneous dissection of the mid LAD. -Echocardiogram performed 11/08/2021 revealed EF of 52%, mild MR. Review Of Systems: At the time of my exam: CONSTITUTIONAL: Denies fever or chills. HEENT: Denies blurred vision, vision changes, or eye pain. Denies hemoptysis CARDIOVASCULAR: Denies chest pain. Denies orthopnea. Denies PND. Denies palpitations RESPIRATORY: Denies shortness of breath. GASTROINTESTINAL: Denies abdominal pain. Denies nausea or vomiting. HEMATOLOGIC: Denies bleeding disorders. GENITOURINARY: Denies any blood in urine. SKIN: Denies puritis. Denies rash. Physical examination: Gen: This is a 38-year-old female in no acute distress VS: reviewed HEENT: Head is atraumatic, normocephalic. Pupils equal, round. Sclerae is anicteric. NECK: Supple. No JVD. LUNGS: Clear to auscultation. No wheezes or rhonchi. No intercostal retractions. HEART: Regular rate and rhythm. No murmur. ABDOMEN: Soft No tenderness. EXTREMITIES: No pedal edema. No calf tenderness. NEUROLOGICAL: Patient is awake, alert and oriented x3. Assessment: NSTEMI History of spontaneous dissection of the mid LAD Mixed hyperlipidemia Plan: Resume patient's home cardiac medications Start patient on heparin drip Schedule patient for cardiac catheterization tomorrow with Dr. Patel [email or web address].[email or web address]. after midnight Obtain 2-D echocardiogram and Doppler study to assess cardiac structure and function Further recommendations to follow based upon clinical course Thank you kindly for this consultation. Nurse practitioner note has been reviewed, I agree with documented findings and plan of care. Patient was seen and examined. Past Medical History Past Medical History: GERD/Reflux, Syncope Additional Past Medical History / Comment(s): Spontaneous coronary artery dissection. History of Any Multi-Drug Resistant Organisms: None Reported Past Surgical History: Section, Heart Catheterization Additional Past Surgical History / Comment(s): Section X1. Past Anesthesia/Blood Transfusion Reactions: No Reported Reaction Past Psychological History: No Psychological Hx Reported Smoking Status: Never smoker Past Alcohol Use History: Occasional Past Drug Use History: None Reported - Past Family History Sister(s) Family Medical History: Blood Disorder, Cancer Additional Family Medical History / Comment(s): Breast Cancer. Can't remember fu ll name of blood disorder (IPT?). Medications and Allergies Home Medications Medication Instructions Recorded Confirmed Type Aspirin 81 mg PO DAILY #30 tab 11/08/21 05/20/24 Rx Atorvastatin [Lipitor] 20 mg PO DAILY 05/20/24 05/20/24 History Allergies Allergy/AdvReac Type Severity Reaction Status Date / Time No Known Allergies Allergy Verified 05/20/24 10:55 Physical Exam Vitals: Vital Signs Temp Pulse Pulse Pulse Resp BP BP 05/21/24 07:00 98.1 F 60 17 103/63 05/21/24 03:14 98.3 F 44 L 15 98/60 05/20/24 20:18 97.9 F 50 L 15 118/80 05/20/24 20:02 98.2 F 57 L 16 131/86 05/20/24 18:18 62 14 116/81 05/20/24 15:31 56 L 12 119/78 05/20/24 12:57 78 14 114/87 05/20/24 11:56 55 L 20 101/74 05/20/24 10:39 74 05/20/24 10:15 97.5 F L 73 20 109/77 Pulse Ox 05/21/24 07:00 99 05/21/24 03:14 99 05/20/24 20:18 99 05/20/24 20:02 99 05/20/24 18:18 99 05/20/24 15:31 100 05/20/24 12:57 05/20/24 11:56 99 05/20/24 10:39 05/20/24 10:15 99 Intake and Output 05/20/24 05/21/24 05/21/24 22:59 06:59 14:59 Other: Voiding Method Toilet # Voids 1 1 Weight 57.153 kg Results 05/21/24 11:22 05/20/24 10:36 Cardiac Enzymes 05/20/24 05/20/24 05/20/24 Range/Units 10:36 10:36 13:45 AST 42 H (14-36) U/L Troponin I <0.012 0.018 (0.000-0.034) ng/mL 05/20/24 Range/Units 17:49 AST (14-36) U/L Troponin I 0.028 (0.000-0.034) ng/mL Coagulation 05/20/24 Range/Units 10:36 PT 11.2 (10.0-12.5) sec APTT 22.6 (22.0-30.0) sec CBC 05/20/24 Range/Units 10:38 WBC 4.4 (3.8-10.6) k/uL RBC 5.00 (3.80-5.40) m/uL Hgb 14.5 (11.4-16.0) gm/dL Hct 45.4 (34.0-46.0) % Plt Count 237 (150-450) k/uL Comprehensive Metabolic Panel 05/20/24 Range/Units 10:36 Sodium 138 (137-145) mmol/L Potassium 4.2 (3.5-5.1) mmol/L Chloride 102 (98-107) mmol/L Carbon Dioxide 26 (22-30) mmol/L BUN 12 (7-17) mg/dL Creatinine 0.82 (0.52-1.04) mg/dL Glucose 95 (74-99) mg/dL Calcium 9.4 (8.4-10.2) mg/dL AST 42 H (14-36) U/L ALT 45 H (4-34) U/L Alkaline Phosphatase 60 (38-126) U/L Total Protein 7.4 (6.3-8.2) g/dL Albumin 4.7 (3.5-5.0) g/dL Current Medications Generic Name Dose Route Start Last Admin Trade Name Freq PRN Reason Stop Dose Admin Acetaminophen 650 mg 05/20/24 16:24 Acetaminophen Tab 325 Mg Tab PO Q6HR PRN Mild Pain or Fever > 100.5 Aspirin 81 mg 05/21/24 09:00 Aspirin 81 Mg PO DAILY [facility] Atorvastatin Calcium 20 mg 05/21/24 09:00 Atorvastatin 20 Mg Tab PO DAILY [facility] Enoxaparin Sodium 40 mg 05/20/24 20:00 05/20/24 20:58 Enoxaparin 40 Mg/0.4 Ml Syringe SQ Not Given DAILY [facility] Ibuprofen 400 mg 05/20/24 16:24 Ibuprofen 400 Mg Tab PO Q6HR PRN Moderate Pain or Fever > 100.5 Naloxone HCl 0.2 mg 05/20/24 16:24 Naloxone 0.4 Mg/Ml 1 Ml Vial IV Q2M PRN Opioid Reversal Intake and Output 05/20/24 05/21/24 05/21/24 22:59 06:59 14:59 Other: Voiding Method Toilet # Voids 1 1 Weight 57.153 kg 05/20/24 10:38 05/20/24 10:36
[2024-05-21] MEDS: HEPARIN SOD,PORK IN 0.45% NACL 25,000 UNIT in 0.45% NACL 1 250ML.BAG IV SCH (14:07)
[2024-05-21] MEDS: SODIUM CHLORIDE 0.9% 1,000 ML IV SCH (14:08)
[2024-05-21] MEDS: HEPARIN SODIUM 1,000 UN/ML (10ML VL) IV ONE (14:08)
--- NOTE | 2024-05-21 16:54 | P.PN ---
Progress Note - Text Progress Note Date: 05/21/24 Chief Complaint: Chest pain Pleasant 38-year-old patient, follows with Dr. Jeff Neves. Back in 2021 patient had a chest pain presentation to the hospital. Cardiac catheterization Dr. Patel showed a mid LAD spontaneous dissection. Otherwise EF was good. Patient is very active and runs about 5 times a week a few miles. No other cardiac history. Today after running for about 3 miles she fell this pain in the middle of the chest. Discomfort with both arms and just did not feel right. Decided to stop running. May 2: Overnight no further cardiac symptoms. Troponin this morning 0.113. Patient seen by Dr. Bala Velarde earlier. For cardiac catheterization tomorrow. I spoke to Dr. Dylon García from radiology who did review thoracic aorta CT. There was no subclavian stenosis or any other vascular abnormalities that he could find. Delete Active Medications Acetaminophen (Acetaminophen Tab 325 Mg Tab) 650 mg PO Q6HR PRN PRN Reason: Mild Pain or Fever > 100.5 Alprazolam (Alprazolam 0.25 Mg Tab) 0.25 mg PO Q6HR PRN PRN Reason: Mild Anxiety Alprazolam (Alprazolam 0.5 Mg Tab) 0.5 mg PO Q6HR PRN PRN Reason: Moderate Anxiety Aspirin (Aspirin 81 Mg) 81 mg PO DAILY [facility] Last Admin: 05/21/24 10:16 Dose: 81 mg Aspirin (Aspirin 325 Mg Tab) 325 mg PO ONCE ONE Stop: 05/22/24 06:01 Atorvastatin Calcium (Atorvastatin 20 Mg Tab) 20 mg PO DAILY [facility] Last Admin: 05/21/24 10:16 Dose: 20 mg Atorvastatin Calcium (Atorvastatin 80 Mg Tab) 80 mg PO ONCE ONE Stop: 05/22/24 06:01 Heparin Sodium (Porcine) (Heparin Sodium 1,000 Un/Ml (10ml Vl)) 0 unit IV PER PROTOCOL PRN; Protocol PRN Reason: Low PTT Sodium Chloride (Saline 0.9%) 1,000 mls @ 50 mls/hr IV .Q20H [facility] Last Admin: 05/21/24 14:08 Dose: 50 mls/hr Heparin Sodium/Sodium Chloride (25,000 unit/ Sodium Chloride) 250 mls @ 6.858 mls/hr IV .Q24H [facility]; Protocol Last Admin: 05/21/24 14:07 Dose: 12 units/kg/hr, 6.858 mls/hr Heparin Sodium (Porcine) 10, (000 unit/ Sodium Chloride) 1,001 mls @ 999 mls/hr IRRIGATION ONCE PRN PRN Reason: INTRA-OP Stop: 05/22/24 23:00 Heparin Sodium (Porcine) 2,500 (unit/ Sodium Chloride) 250.5 mls @ 250 mls/hr IRRIGATION ONCE PRN PRN Reason: INTRA-OP Stop: 05/22/24 23:00 Ibuprofen (Ibuprofen 400 Mg Tab) 400 mg PO Q6HR PRN PRN Reason: Moderate Pain or Fever > 100.5 Naloxone HCl (Naloxone 0.4 Mg/Ml 1 Ml Vial) 0.2 mg IV Q2M PRN PRN Reason: Opioid Reversal Nitroglycerin (Nitroglycerin Oint 1 Inch/Gm Packet) 0.5 inch TOPICAL Q6HR PRN PRN Reason: Chest Pain Nitroglycerin (Nitroglycerin Sl Tabs 0.4 Mg Tab) 0.4 mg SUBLINGUAL Q5M PRN PRN Reason: Chest Pain Social history: Lives with her . 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 Drinks alcohol occasionally. No smoking. No use of any recreational drugs Physical examination: VITAL SIGNS: 98, 61, 16, 105 x 68, 98% room air GENERAL: Sitting up in bed comfortable. EYES: Pupils equal. Conjunctiva wendy l. HEENT: External appearance of nose and ears normal, oral cavity grossly normal. NECK: JVD not raised; masses not palpable. HEART: First and second heart sounds are normal; no edema. LUNGS: Respiratory rate normal; clear to auscultation. ABDOMEN: Soft, nontender, liver spleen not palpable, no masses palpable. PSYCH: Alert and oriented x3; mood and affect wendy l. INVESTIGATIONS, reviewed in the clinical context: May 21: White count 6.2 hemoglobin 14 platelets 243 EKG tracing personally reviewed by me-sinus rhythm. Flipped T waves anterior leads. Chest x-ray film personally reviewed by me-unremarkable May 20, 2024: White count 4.4 hemoglobin 14.5 platelets 237 potassium 4.2 creatinine 0.82 AST 42 ALT 45 Troponin I less than 0.012, 0.018, 0.028. Troponin 0.[address] angio of the chest abdomen pelvis: Unremarkable Assessment plan: -Anterior chest wall pain. This is in a patient in 2021 had spontaneous mid LAD dissection. Patient is physically very active with a longer around her. Patient EKG showing flipped T waves in anterior leads. The first troponin was less than 0.012. Given her prior presentation patient will be observed. Telemetry. Serial cardiac enzymes. Cardiology consulted -Positive troponin at 0.113. Reason unclear -Mild transaminitis. Ordered: Hepatic ultrasound. Discussed at length with patient. Cardiac catheterization tomorrow. Past Medical History Past Medical History: GERD/Reflux, Syncope Additional Past Medical History / Comment(s): Spontaneous coronary artery dissection. History of Any Multi-Drug Resistant Organisms: None Reported Past Surgical History: Section, Heart Catheterization Additional Past Surgical History / Comment(s): Section X1. Past Anesthesia/Blood Transfusion Reactions: No Reported Reaction Past Psychological History: No Psychological Hx Reported Smoking Status: Never smoker Past Alcohol Use History: Occasional Past Drug Use History: None Reported
[2024-05-21 19:17] VITALS: TEMP 97.6
[2024-05-21] MEDS: HEPARIN SODIUM 1,000 UN/ML (10ML VL) IV PRN (22:02)
[2024-05-22 01:29] VITALS: RESP 16
[2024-05-22] MEDS: ASPIRIN 325 MG TAB PO ONE (06:06)
[2024-05-22] MEDS: ATORVASTATIN 80 MG TAB PO ONE (06:06)
[2024-05-22 06:28] LABS: Partial Thromboplastin Time 49.3 sec (22.0-30.0); Prothrombin Time 11.4 sec (10.0-12.5)
[2024-05-22] MEDS: SODIUM CHLORIDE 0.9% 1,000 ML IV ONE (06:51)
[2024-05-22] MEDS: fentaNYL (PF) 50 MCG/ML 2 ML AMP IVP ONE (06:57)
[2024-05-22] MEDS: LIDOCAINE 1% INJ 10MG/ML (20 ML MDV) SQ ONE (06:59)
[2024-05-22] MEDS: MIDAZOLAM 2 MG/2 ML VIAL IVP ONE (07:00)
[2024-05-22] MEDS: HEPARIN SODIUM,PORCINE 10,000 UNIT in SODIUM CHLORIDE 0.9% 1,000 ML IRRIGATION PRN (07:02)
[2024-05-22] MEDS: HEPARIN SODIUM,PORCINE (1 ML) 2,500 UNIT in SODIUM CHLORIDE 0.9% 250 ML IRRIGATION PRN (07:02)
[2024-05-22] MEDS: VERAPAMIL SYRINGE (5 MG/10 ML) INTRAARTER ONE (07:05)
[2024-05-22] MEDS: HEPARIN SODIUM 1,000 UN/ML (10ML VL) IV ONE (07:08)
[2024-05-22] MEDS: IOPAMIDOL-370 100ML BTL INJ ONE (07:14)
[2024-05-22] MEDS ORDERED: RX INFO: IV CONTRAST WAS GIVEN 1 EACH MISC MISCELLANE PRN (07:28)
--- NOTE | 2024-05-22 07:37 | P.CARDCATH ---
Date of Procedure: 05/22/24 Description of Procedure: Cardiac Catheterization: The patient is a 38-year-old female who in 2021 presented with non-STEMI and evidence of spontaneous coronary artery dissection, treated conservatively with total recovery and resumption of her routine physical activity. 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 She was evaluated by Dr. Velarde. Recommendations were made regarding cardiac catheterization, the risks and the complications were discussed with the patient who is in full understanding and agreement. Procedure Description: Patient was brought to home performance laborer in fasting semi-sedated state after receiving Fentanyl and Benadryl achieiving moderate conscious sedated state. Using Xylocaine Anesthesia and modified Seldinger technique, a 6-Salvadorean sheath was introduced in the right radial artery . Subsequently, selective coronary angiography was performed using a 5-Salvadorean 3.5 bend Emi catheter. Multiple views of the coronary artery including hemiaxial views were obtained. The right Emi catheter was used to cross the aortic valve and LVEDP was calculated. Following that, catheter and sheath were removed. Hemostasis was obtained with deployment of vascular band . There was no immediate complication. Patient was returned to room in stable condition. Of n ote, the patient received a total of 3500 units of intravenous heparin as well as intra-arterial verapamil. Findings: Left main: This is a large size vessel, bifurcating into LAD and left circumfle x, left main has no obstructive disease LAD: This is a large size vessel, reaching to the apex, giving rise to a large proximal diagonal branch. The second diagonal branch is small in caliber. After the takeoff of the second diagonal branch there is a 20% plaque with no progression compared to the images of 2021. The mid and distal segment of the LAD where the patient had the evidence of the spontaneous coronary artery dissection has healed completely with no evidence of residual plaque and a RO- 3 flow. Left circumflex: This is a large nondominant vessel giving rise to 1 obtuse marginal branch, the left circumflex as well as branches have no obstructive disease RCA: This is a large dominant vessel, bifurcating into PDA and PLV, the right coronary artery and its branches have no obstructive disease Left Ventriculogram: Not performed Hemodynamics: There was no gradient across the aortic valve, LVEDP was 10-14 mmHg Conclusion: 1. Mild disease in the mid LAD with no progression since 2021 2. Total healing of the area of spontaneous coronary artery dissection of the mid and distal LAD with RO-3 flow 3. No obstructive disease in the left circumflex and the right coronary artery 4. Right dominance Recommendations: I have recommended to continue medical therapy, her mild troponin elevation could be related to vasospastic disease or myocardial infarction with normal coronary arteries. I we will review the result of her echocardiogram for further recommendations. The findings and the recommendations were discussed with the patient and the family and they were in full understanding and agreement. Duration of sedation is 17 minutes.
--- NOTE | 2024-05-22 08:37 | US ---
EXAMINATION TYPE: US abdomen limited DATE OF EXAM: 05/22/2024 COMPARISON: NONE CLINICAL INDICATION: Female, 38 years old with history of Mild elevation of LFTs; Patient denies any signs, symptoms, or relevant history TECHNIQUE: Grayscale and color Doppler imaging of the right upper quadrant was performed. FINDINGS: EXAM MEASUREMENTS: Liver Length: 17.1 cm Gallbladder Wall: 0.2 cm CBD: 0.6 cm Right Kidney: 10.4 x 3.9 x 4.8 cm Pancreas: wnl; pancreatic duct seen Liver: wnl Gallbladder: There is layering echoes suggestive of possible sludge. Evidence for sonographic Wang's sign: No CBD: ? Dilated Right Kidney: wnl IMPRESSION: 1. No evidence for acute process. 2. Biliary sludge versus artifact. [facility], , 05/22/2024 8:35 AM
[2024-05-22 08:50] LABS: Basophils # (A) 0.05 X 10*3/uL (0.00-0.10); Basophils % (A) 0.9 %; Eosinophils # (A) 0.22 X 10*3/uL (0.04-0.35); HCT 41.6 % (37.2-46.3); HGB 13.3 g/dL (12.0-15.0); Lymphocytes # (A) 2.12 X 10*3/uL (0.90-5.00); Lymphocytes % (A) 38.5 %; MCH 29.7 pg (27.0-32.0); MCV 92.9 FL (80.0-97.0); Mean Platelet Volume 10.8 FL (9.5-12.2); Monocytes # (A) 0.43 X 10*3/uL (0.20-1.00); Monocytes % (A) 7.8 %; NRBC Per 100 WBC 0 X 10*3/uL (0.00-0.01); Neutrophils # (A) 2.68 X 10*3/uL (1.80-7.70); Neutrophils % (A) 48.6 %; Platelet Count 226 X 10*3/uL (140-440); RBC 4.48 X 10*6/uL (4.10-5.20); RDW 13.3 % (11.5-14.5); WBC 5.51 X 10*3/uL (4.50-10.00)
[2024-05-22] MEDS: CLOPIDOGREL 75 MG TAB PO SCH (08:52)
[2024-05-22] MEDS: SODIUM CHLORIDE 0.9% 1,000 ML IV SCH (08:53)
--- NOTE | 2024-05-22 10:27 | CA ---
Transthoracic Echo Report Name: Robert Barros Age: 38 Gender: F : 1985 Exam Date: 05/21/2024 13:54 Exam Location: [facility] Ht (in): 63 Wt (lb): 126 Ordering Physician: Molly Frances Attending/Referring Phys: [id number], [employer] Gavi Triana RDCS Procedure CPT: Indications: LVF Cardiac Hx: Technical Quality: Good Contrast 1: Total Dose (mL): Contrast 2: Total Dose (mL): MEASUREMENTS (Male / Female) Normal Values 2D ECHO LV Diastolic Diameter PLAX 4.3 cm 4.2 - 5.9 / 3.9 - 5.3 cm LV Systolic Diameter PLAX 2.7 cm IVS Diastolic Thickness 0.9 cm 0.6 - 1.0 / 0.6 - 0.9 cm LVPW Diastolic Thickness 1.0 cm 0.6 - 1.0 / 0.6 - 0.9 cm LV Relative Wall Thickness 0.4 RV Internal Dim ED PLAX 3.0 cm LA Systolic Diameter LX 3.1 cm 3.0 - 4.0 / 2.7 - 3.8 cm LV Diastolic Volume MOD 4C 73.9 cm??? LV Systolic Volume MOD 4C 27.5 cm??? LV Ejection Fraction MOD 4C 62.8 % LV Cardiac Index MOD 4C 1538.5 cm???/min???m??? LV Diastolic Length 4C 8.0 cm LV Systolic Length 4C 5.9 cm LV Diastolic Volume MOD 2C 99.0 cm??? LV Systolic Volume MOD 2C 36.2 cm??? LV Ejection Fraction MOD 2C 63.5 % LV Cardiac Index MOD 2C 2082.7 cm???/min???m??? LV Diastolic Length 2C 8.1 cm LV Systolic Length 2C 6.3 cm M-MODE Aortic Root Diameter MM 3.2 cm DOPPLER AV Peak Velocity 130.1 cm/s AV Peak Gradient 6.8 mmHg Mitral E Point Velocity 99.3 cm/s Mitral A Point Velocity 62.1 cm/s Mitral E to A Ratio 1.6 MV Deceleration Time 179.4 ms MV E' Velocity 10.4 cm/s Mitral E to MV E' Ratio 9.5 TR Peak Velocity 171.1 cm/s TR Peak Gradient 11.7 mmHg Right Ventricular Systolic Press 21.8 mmHg FINDINGS Left Ventricle Left ventricular ejection fraction is estimated at 55-60 %. Left ventricular cavity size normal. Left ventricular wall thickness normal. Normal left ventricular wall motion. Right Ventricle Normal right ventricular size and function. Right ventricular systolic pressure within normal limits. Right Atrium Normal right atrial size. No right atrial thrombus or mass seen. Left Atrium Normal left atrial size. No left atrial thrombus or mass present. Mitral Valve Structurally normal mitral valve. No evidence for mitral valve prolapse. No mitral stenosis. Trace to mild mitral regurgitation. Aortic Valve Trileaflet aortic valve. No aortic valve stenosis or regurgitation. Tricuspid Valve Structurally normal tricuspid valve. Trace to mild tricuspid regurgitation. Pulmonic Valve Structurally normal pulmonic valve. No pulmonic regurgitation. Pericardium No pericardial effusion. Aorta Normal size aortic root and proximal ascending aorta. CONCLUSIONS Indication: Chest pain with mildly abnormal troponin, history of coronary dissection in the past Normal LV size and function without any segmental wall motion abnormalities Normal RV size and function Prominent posterior pericardial stripe Previewed by: Dr. Octavio Velarde MD (Electronically Signed) Final Date: 22 May 2024 10:26
[2024-05-22 12:21] VITALS: BP 93/62; PULSE 50
--- NOTE | 2024-05-22 13:12 | P.PN ---
Subjective Progress Note Date: 05/22/24 Consult reason: chest pain History of present illness: This is a 38-year-old female patient of Dr. Patel with past medical history of spontaneous dissection of the mid LAD, mixed hyperlipidemia. We have been asked to evaluate the patient for chest pain. Patient states that she typically runs and she is preparing for a marathon. She typically runs 50 miles per week in preparation for the marathon. 2 days/week she does an intense hill sprint type workout. She states that yesterday she was running a little harder than her baseline and she developed chest pain with heaviness and difficulty in breathing. It lasted about 10 minutes. She states she stopped running and she felt off in general. She then walked back to her car which took her about 10 minutes and by that time the pain had resolved. Pain did not get worse with deep breathing. She denies palpitations, no lightheadedness or dizziness. She states that on Sunday she ran 20 miles and felt fine and yesterday she ran 3 miles and felt fine. Patient's initial 3 troponins were negative and a fourth 1 was requested. This unfortunately came back elevated. Discussed findings with the patient and recommendations for cardiac catheterization. Patient was agreeable to move forward with this and this will be scheduled tomorrow with Dr. Patel. Blood pressure 103/63, heart rate 60, pulse ox 99% on room air. Patient has been afebrile. -EKG: Sinus rhythm with T wave inversions similar to previous EKGs. -Chest x-ray: No acute process. -CTA chest abdomen pelvis: No aneurysm no dissection of the thoracic or abdominal aorta. No significant abnormality seen within the abdomen or pelvis. -Laboratory studies: CBC, INR, electrolytes, renal function all within normal limits. Troponin negative x 3 followed by 0.113. AST 42, ALT 45. -Home cardiac medications: Aspirin 81 mg daily, atorvastatin 20 mg daily. Hide history -Cardiac catheterization 11/07/2021: Evidence suggestive of spontaneous dissection of the mid LAD. -Echocardiogram performed 11/08/2021 revealed EF of 52%, mild MR. 4/ Patient underwent cardiac catheterization this morning with Dr. Patel which revealed mild disease in the mid LAD with no progression since 2021. Total healing of the area of spontaneous coronary artery dissection of the mid and distal LAD with TIMI3 flow. No obstructive disease in the left circumflex and the right coronary artery. Patient was started on Plavix by Dr. Patel. Blood pressure 89/59, heart rate 57, pulse ox 99% on room air. Physical examination: Gen: This is a 38-year-old female in no acute distress VS: reviewed HEENT: Head is atraumatic, normocephalic. Pupils equal, round. Sclerae is anicteric. NECK: Supple. No JVD. LUNGS: Clear to auscultation. No wheezes or rhonchi. No intercostal retractions. HEART: Regular rate and rhythm. No murmur. ABDOMEN: Soft No tenderness. EXTREMITIES: No pedal edema. No calf tenderness. NEUROLOGICAL: Patient is awake, alert and oriented x3. Assessment: NSTEMI ruled out by normal coronary arteries on cardiac cath Elevated troponin of unclear significance History of spontaneous dissection of the mid LAD Mixed hyperlipidemia Plan: Continue patient's home cardiac medications Continue Plavix 75 mg daily No further cardiac workup at this time Patient is cleared for discharge and will follow-up with Dr. Patel in 1 to 2 weeks. Nurse practitioner note has been reviewed, I agree with documented findings and plan of care. Patient was seen and examined. Objective - Vital Signs Vital signs: Vital Signs Temp 97.6 F 05/22/24 07:33 Pulse 56 L 05/22/24 07:33 Resp 16 05/22/24 01:29 BP 100/66 05/22/24 07:33 Pulse Ox 97 05/22/24 08:15 FiO2 Intake & Output 05/21/24 05/22/24 05/22/24 18:59 06:59 18:59 Intake Total 118 253.835 Balance 118 253.835 Intake: IV 200 Intake, IV Titration 53.835 Amount Heparin Sod,Pork in 0.45% 53.835 NaCl 25,000 unit In 0.45 % NaCl 1 250ml.bag @ 12 UNITS/KG/HR 6.858 mls/hr IV .Q24H [facility] Rx#: [id number] Oral 118 Other: Voiding Method Toilet # Voids 2 2 - Labs CBC & Chem 7: 05/22/24 05:20 05/20/24 10:36 Labs: Abnormal Lab Results - Last 24 Hours (Table) 04/02/25 04/02/25 04/03/25 Range/Units 09:09 20:44 05:20 APTT 30.9 H 49.3 H (22.0-30.0) sec Troponin I 0.113 H* (0.000-0.034) ng/mL
--- NOTE | 2024-05-22 17:27 | P.DS ---
Providers Date of admission: 05/20/24 14:22 Expected date of discharge: 05/22/24 Attending physician: Ravi Quesada Consults: 05/20/24 16:24 Consult Physician Urgent Consulting Provider: Bonifacio Patel Consult Reason/Comments: chest pain Do you want consulting provider notified?: Yes Primary care physician: Giovany Neves [facility] Course: Chief Complaint: Chest pain Pleasant 38-year-old patient, follows with Dr. Jeff Neves. Back in 2021 patient had a chest pain presentation to the hospital. Cardiac catheterization Dr. Patel showed a mid LAD spontaneous dissection. Otherwise EF was good. Patient is very active and runs about 5 times a week a few miles. No other cardiac history. Today after running for about 3 miles she fell this pain in the middle of the chest. Discomfort with both arms and just did not feel right. Decided to stop running. May 21: Overnight no further cardiac symptoms. Troponin this morning 0.113. Patient seen by Dr. Bala Velarde earlier. For cardiac catheterization tomorrow. I spoke to Dr. Dylon García from radiology who did review thoracic aorta CT. There was no subclavian stenosis or any other vascular abnormalities that he could find. May 22: Cardiac catheterization unremarkable. Discussed with Dr. Patel. No further testing. Patient to follow with Dr. Patel in the office next week. No exercise until then. Plavix was added Discussion and discharge planning more than 35 minutes Social history: Lives with her . 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 Drinks alcohol occasionally. No smoking. No use of any recreational drugs Physical examination: VITAL SIGNS: 50, 93 x 62, 97% room air GENERAL: Sitting up in bed comfortable. EYES: Pupils equal. Conjunctiva wendy l. HEENT: External appearance of nose and ears normal, oral cavity grossly normal. NECK: JVD not raised; masses not palpable. HEART: First and second heart sounds are normal; no edema. LUNGS: Respiratory rate normal; clear to auscultation. ABDOMEN: Soft, nontender, liver spleen not palpable, no masses palpable. PSYCH: Alert and oriented x3; mood and affect wendy l. INVESTIGATIONS, reviewed in the clinical context: Cardiac catheterization normal Hepatic ultrasound: Unremarkable May 22: White count 5.1 hemoglobin 13.3 platelets 226 May 21: White count 6.2 hemoglobin 14 platelets 243 EKG tracing personally reviewed by me-sinus rhythm. Flipped T waves anterior leads. Chest x-ray film personally reviewed by me-unremarkable May 20, 2024: White count 4.4 hemoglobin 14.5 platelets 237 potassium 4.2 creatinine 0.82 AST 42 ALT 45 Troponin I less than 0.012, 0.018, 0.028. Troponin 0.[address] angio of the chest abdomen pelvis: Unremarkable Assessment plan: -Anterior chest wall pain. This is in a patient in 2021 had spontaneous mid LAD dissection. Patient is physically very active with a longer around her. Patient EKG showing flipped T waves in anterior leads. The first troponin was less than 0.012. Given her prior presentation patient will be observed. Telemetry. Serial cardiac enzymes. Cardiology consulted -Positive troponin at 0.113. Reason unclear -No CAD. Normal cardiac catheterization -Mild transaminitis. Hepatic ultrasound unremarkable. Follow-up with Dr. Julieta Devlin outpatient. Discussed with patient Disposition: Home Past Medical History Past Medical History: GERD/Reflux, Syncope Additional Past Medical History / Comment(s): Spontaneous coronary artery dissection. History of Any Multi-Drug Resistant Organisms: None Reported Past Surgical History: Section, Heart Catheterization Additional Past Surgical History / Comment(s): Section X1. Past Anesthesia/Blood Transfusion Reactions: No Reported Reaction Past Psychological History: No Psychological Hx Reported Smoking Status: Never smoker Past Alcohol Use History: Occasional Past Drug Use History: None Reported Plan - Discharge Summary New Discharge Prescriptions: New Clopidogrel [Plavix] 75 mg PO DAILY #30 tab Continue Aspirin 81 mg PO DAILY #30 tab Atorvastatin [Lipitor] 20 mg PO DAILY Discharge Medication List Aspirin 81 mg PO DAILY #30 tab 11/08/21 [Rx] Atorvastatin [Lipitor] 20 mg PO DAILY 05/20/24 [History] Clopidogrel [Plavix] 75 mg PO DAILY #30 tab 05/22/24 [Rx] Follow up Appointment(s)/Referral(s): Bonifacio Patel MD [STAFF PHYSICIAN] - 05/29/24 10:45 am Vanessa Devlin MD [STAFF PHYSICIAN] - 06/16/24 2:30 pm Giovany Neves MD [Primary Care Provider] - 1-2 days Patient Instructions/Handouts: After Radial Heart Catheterization (GEN) Activity/Diet/Wound Care/Special Instructions: DO NOT SUBMERGE RIGHT WRIST IN WATER; NO SOAKING IN TUBS, POOLS, DISHES, ETC YOU MAY REMOVE THE DRESSING IN 24 HOURS AND LEAVE OPEN TO AIR NO BENDING, FLEXING, PUSHING, PULLING, LIFTING MORE THAN 5LBS FOR 5 DAYS CALL OFFICE IF YOU NOTICE ANY BLEEDING OR SWELLING SIGNS OF INFECTION; FEVERS, DRAINAGE OF CLOUDY FLUIDS, INCREASED SWELLING OR PAIN Discharge Disposition: HOME SELF-CARE
== END 2024-05-22 13:25 | disposition home or self-care (01) ==
LOC: EC 10:14 → 6NMEDSUR 14:22
PROVIDERS: ADMIT Hospitalist; ATTEND Hospitalist
DX: R07.89 Other chest pain (principal); R79.89 Other specified abnormal findings of blood chemistry; R74.01 Elevation of levels of liver transaminase levels; E78.2 Mixed hyperlipidemia; Z79.82 Long term (current) use of aspirin; Z79.899 Other long term (current) drug therapy; Z86.79 Personal history of other diseases of the circulatory system
CPT/HCPCS: 96365; 96366; 99285; 36415; 94760; 93005; 93306; 93458; 80053; 83735; 84484 ×2; 85025 ×3; 85610 ×3; 85730 ×3; 84702; 71046; 76705; 71275; 74174; G0378 ×3; C1894; C1769; J2250; J1644 ×5; J2003; J3010; Q9967 ×2